=== PATIENT | female | born 1940 | race Hispanic/Latino ===

== ENCOUNTER 2017-08-19 14:03 | Observation (INO) | payer OTHER ==
[2017-08-19] MEDS ORDERED: METHYLPREDNISOLONE 125 MG INJ ONE (15:01)
[2017-08-19] MEDS ORDERED: ALBUTEROL 2.5 MG/3 ML NEB SOL ONE ×2 (15:01→17:18)
[2017-08-19] MEDS ORDERED: IPRATROPIUM BROM 0.5MG/2.5ML ONE ×2 (15:01→17:18)
[2017-08-19 15:07] LABS: Absolute Lymphocytes (CBC) 1.1 K/uL (0.7-4.9); Absolute Monocytes 0.6 K/uL (0.1-1.3); Absolute Neutrophil 3.4 K/uL (1.8-8.0); Basophils % 0.7 % (0-1.3); Eosinophils % 8.2 % (0-4.4); MCH 32.5 pg (27.0-35.0); MCV 97.4 fL (80-100); MPV 12.4 fL (7.6-11.3); RBC Red Blood Cell Count 3.59 M/uL (3.86-4.86)
[2017-08-19 15:12] LABS: Protime INR 1.07
[2017-08-19 15:18] LABS: Potassium 3.6 mEq/L (3.6-5.0)
[2017-08-19 15:24] LABS: Albumin 2.9 g/dL (3.2-5.5); Bilirubin Direct 0.4 mg/dL (0-0.2); Bilirubin Total 1.1 mg/dL (0.3-1.2); Protein, Total 7.5 g/dL (6.0-8.3)
[2017-08-19 15:45] LABS: Blood Morphology Comment NOT SEEN (NOT SEEN); Platelet Estimate DECR; Urine White Blood Cell Casts OK
--- NOTE | 2017-08-19 16:26 | RAD REPORT ---
EXAM DESCRIPTION: RAD - Chest Single View - 08/19/2017 3:43 pm CLINICAL HISTORY: Dyspnea, shortness of breath COMPARISON: November 2011 TECHNIQUE: AP portable chest image was obtained . FINDINGS: Lung volumes are low. No peripheral mass or consolidation. Heart, vasculature and lung mar kings are within normal limits given the degree of inspiration. Trachea is midline. Heart and vascula ture are normal. No measurable pleural effusion and no pneumothorax. No gross bony abnormality seen. No acute aortic findings suspected. IMPRESSION: Shallow inspiration examination accentuates heart, vasculature and lung markings. No peripheral consolidation or mass.
--- NOTE | 2017-08-19 17:13 | ER ---
Nurse's Notes [facility] Name: Ofelia Huizar Age: 76 yrs Sex: Female : 1940 Arrival Date: 08/19/2017 Time: 14:06 Bed 2 Private MD: Jose Martin Beckman Diagnosis: Edema;Chronic obstructive pulmonary disease with (acute) exacerbation Presentation: 08/19 14:12 Presenting complaint: Patient states: I have been having trouble breathing that has la1 been getting worse over the course of the last week, I am also having new swelling in my feet. Transition of care: patient was not received from another setting of care. Onset of symptoms was August 19, 2017. Initial Sepsis Screen: Does the patient meet any 2 criteria? No. Patient's initial sepsis screen is negative. Does the patient have a suspected source of infection? No. Patient's initial sepsis screen is negative. Care prior to arrival: None. 14:12 Method Of Arrival: Wheelchair la1 14:12 Acuity: BIB 2 la1 Triage Assessment: 14:14 General: Appears uncomfortable, Behavior is calm, cooperative. Pain: Denies pain. la1 Respiratory: Reports shortness of breath Onset: The symptoms/episode began/occurred one week, the patient has moderate shortness of breath. Respiratory: Trachea midline Respiratory effort is even, labored, Respiratory pattern is tachypnea. 14:14 Respiratory: Breath sounds with wheezes bilaterally. la1 Historical: - Allergies: 14:15 No Known Allergies; la1 - PMHx: 14:15 Hypertension; High Cholesterol; Bronchitis; la1 - Immunization history:: Adult Immunizations up to date. - Social history:: Smoking status: Patient/guardian denies using tobacco. Screenin:50 Abuse screen: Denies threats or abuse. Denies injuries from another. Nutritional sg screening: No deficits noted. Tuberculosis screening: No symptoms or risk factors identified. Never had TB. Fall Risk None identified. Assessment: 15:00 General: Appears in no apparent distress. comfortable, well groomed, well developed, sg well nourished, Behavior is calm, cooperative, appropriate for age. Pain: Denies pain. Neuro: Level of Consciousness is awake, alert, obeys commands, Oriented to person, place, time, situation, Glass Calibrator are equal bilaterally Moves all extremities. Speech is normal, Facial symmetry appears normal. Cardiovascular: Heart tones S1 S2 present Capillary refill is brisk in bilateral fingers Patient's skin is warm and dry. Edema is 1+ to left ankle, left foot, left toes, right ankle, right foot and right toes Chest pain is denied. Respiratory: Airway is patent Respiratory effort is even, unlabored, Respiratory pattern is regular, symmetrical, Breath sounds are coarse Breath sounds with wheezes. GI: No signs and/or symptoms were reported involving the gastrointestinal system. : No signs and/or symptoms were reported regarding the genitourinary system. EENT: No signs and/or symptoms were reported regarding the EENT system. Derm: Skin is pink, warm \T\ dry. Musculoskeletal: No signs and/or symptoms reported regarding the musculoskeletal system. 16:00 Reassessment: Patient appears in no apparent distress at this time. Patient and/or sg family updated on plan of care and expected duration. Pain level reassessed. Patient is alert, oriented x 3, equal unlabored respirations, skin warm/dry/pink. Patient states feeling better. Respiratory: Airway is patent Respiratory effort is even, unlabored, Respiratory pattern is regular, symmetrical, Breath sounds are coarse Breath sounds with wheezes. Derm: Skin is pink, warm \T\ dry. 17:40 Reassessment: Patient appears in no apparent distress at this time. manufacturing technologist at sg bedside, at this time. 18:00 Reassessment: Patient appears in no apparent distress at this time. Patient and/or sg family updated on plan of care and expected duration. Pain level reassessed. Patient is alert, oriented x 3, equal unlabored respirations, skin warm/dry/pink. pt family remains at bedside at this time, awaiting a bed assignment, pt stated understanding, will continue to monitor. Vital Signs: 14:15 BP 150 / 54; Pulse 84; Resp 19; Temp 98.7(TE); Pulse Ox 97% on R/A; Weight 90.72 kg; la1 Height 5 ft. 0 in. (152.40 cm); 15:30 BP 129 / 57; Pulse 82; Resp 20; sv 14:15 Body Mass Index 39.06 (90.72 kg, 152.40 cm) la1 ED Course: 14:06 Patient arrived in ED. mr 14:07 Jose Martin Beckman MD is Private Physician. mr 14:14 Triage completed. la1 14:14 Arm band placed on left wrist. la1 14:35 Steve Corral PA is PHCP. jr8 14:35 Nash Whiting MD is Attending Physician. jr8 14:55 Initial lab(s) drawn, by me, sent to lab. Inserted saline lock: 20 gauge in right sg wrist, using aseptic technique. Blood collected. 14:58 Mikel Kelly, RN is Primary Nurse. sg 15:20 Patient has correct armband on for positive identification. Bed in low position. Call sg light in reach. Side rails up X2. awake overnight monitor on. Pulse ox on. NIBP on. Warm blanket given. Head of bed elevated. 15:43 XRAY Chest (1 view) In Process Unspecified. EDMS 17:11 Bear Ontiveros MD is Hospitalizing Provider. jr8 17:44 Ultrasound completed. Patient tolerated well. sg3 18:14 No provider procedures requiring assistance completed. Patient admitted, IV remains in sg place. intact, No redness/swelling at site. Administered Medications: 15:08 Drug: Albuterol - atroVENT (3:1) (2.5 mg - 0.5 mg) 3 ml Route: Nebulizer; sv 16:00 Follow up: Response: No adverse reaction sg 15:09 Drug: SOLU-Medrol 125 mg Route: IVP; Site: right hand; sv 16:00 Follow up: Response: No adverse reaction sg 17:30 Drug: Albuterol - atroVENT (3:1) (2.5 mg - 0.5 mg) 3 ml Route: Nebulizer; sg 18:00 Drug: Lasix 40 mg Route: IVP; Site: right wrist; sg 18:02 Drug: LevaQUIN 500 mg Route: PO; sg Outcome: 17:12 Decision to Hospitalize by Provider. jr8 18:15 Admitted to Med/surg accompanied by tech, family with patient, via stretcher, room 210, sg with chart, Report called to Abdi AVALOS 18:15 Condition: stable 18:15 Instructed on the need for admit, medication usage, safety practices, Demonstrated understanding of instructions, follow-up care. 18:26 Patient left the ED. sg Signatures: Dispatcher [facility] Sheba Mckeon RN RN sv Mikel Kelly RN RN sg Gloria Marrufo mr Steve Corral, MANDY GALVAN jr8 Héctor Marquez RN RN la1 Lindsey Barkley 3 Corrections: (The following items were deleted from the chart) 18:05 15:45 Lasix 40 mg IVP in right wrist wanda sg
--- NOTE | 2017-08-19 17:13 | EDPHYS ---
Physician Documentation [facility] Name: Ofelia Huizar Age: 76 yrs Sex: Female : 1940 Arrival Date: 08/19/2017 Time: 14:06 Bed 2 Private MD: Jose Martin Beckman ED Physician Nash Whiting HPI: 08/19 16:55 This 76 yrs old Female presents to ER via Wheelchair with complaints of jr8 Breathing Difficulty. 16:55 The patient has shortness of breath at rest. Onset: The symptoms/episode began/occurred jr8 acutely, today. Duration: The symptoms are continuous. The patient's shortness of breath is aggravated by exertion. Associated signs and symptoms: Pertinent positives: lower extremity edema. Severity of symptoms: At their worst the symptoms were moderate in the emergency department the symptoms are unchanged. It is unknown whether or not the patient has had similar symptoms in the past. The patient has not recently seen a physician. Patient with history of COPD but has never had edema in lower extremities . Historical: - Allergies: 14:15 No Known Allergies; la1 - PMHx: 14:15 Hypertension; High Cholesterol; Bronchitis; la1 - Immunization history:: Adult Immunizations up to date. - Social history:: Smoking status: Patient/guardian denies using tobacco. ROS: 16:55 Eyes: Negative for injury, pain, redness, and discharge, ENT: Negative for injury, jr8 pain, and discharge, Neck: Negative for injury, pain, and swelling, Abdomen/GI: Negative for abdominal pain, nausea, vomiting, diarrhea, and constipation, Back: Negative for injury and pain, MS/Extremity: Negative for injury and deformity, Skin: Negative for injury, rash, and discoloration, Neuro: Negative for headache, weakness, numbness, tingling, and seizure. 16:55 Cardiovascular: Positive for edema, Negative for chest pain, orthopnea, palpitations, paroxysmal nocturnal dyspnea. 16:55 Respiratory: Positive for shortness of breath, wheezing. Exam: 16:55 Eyes: Pupils equal round and reactive to light, extra-ocular motions intact. Lids and jr8 lashes normal. Conjunctiva and sclera are non-icteric and not injected. Cornea within normal limits. Periorbital areas with no swelling, redness, or edema. ENT: Nares patent. No nasal discharge, no septal abnormalities noted. Tympanic membranes are normal and external auditory canals are clear. Oropharynx with no redness, swelling, or masses, exudates, or evidence of obstruction, uvula midline. Mucous membranes moist. Neck: Trachea midline, no thyromegaly or masses palpated, and no cervical lymphadenopathy. Supple, full range of motion without nuchal rigidity, or vertebral point tenderness. No Meningismus. Abdomen/GI: Soft, non-tender, with normal bowel sounds. No distension or tympany. No guarding or rebound. No evidence of tenderness throughout. Back: No spinal tenderness. No costovertebral tenderness. Full range of motion. Skin: Warm, dry with normal turgor. Normal color with no rashes, no lesions, and no evidence of cellulitis. MS/ Extremity: Pulses equal, no cyanosis. Neurovascular intact. Full, normal range of motion. Neuro: Awake and alert, GCS 15, oriented to person, place, time, and situation. Cranial nerves II-XII grossly intact. Motor strength 5/5 in all extremities. Sensory grossly intact. Cerebellar exam normal. Normal gait. 16:55 Cardiovascular: Rate: tachycardic, Rhythm: regular, Pulses: Pulses are 2+ in right radial artery and left radial artery. Heart sounds: normal, normal S1and S2, no S3 or S4, no murmur, no rub, no gallop, Edema: 2+ edema to level of left midcalf, left ankle, left foot, right midcalf, right ankle and right foot, JVD: is not appreciated. 16:55 Respiratory: mild respiratory distress is noted, Respirations: tachypnea, that is mild, Breath sounds: wheezing: expiratory that is moderate, is heard diffusely. Vital Signs: 14:15 BP 150 / 54; Pulse 84; Resp 19; Temp 98.7(TE); Pulse Ox 97% on R/A; Weight 90.72 kg; la1 Height 5 ft. 0 in. (152.40 cm); 15:30 BP 129 / 57; Pulse 82; Resp 20; sv 14:15 Body Mass Index 39.06 (90.72 kg, 152.40 cm) la1 MDM: 14:35 Patient medically screened. jr8 17:11 Data reviewed: vital signs, nurses notes, lab test result(s), EKG, radiologic studies, jr8 plain films, ultrasound, and as a result, I will admit patient. Data interpreted: Pulse oximetry: on room air is 97 %. Interpretation: normal. Counseling: I had a detailed discussion with the patient and/or guardian regarding: the historical points, exam findings, and any diagnostic results supporting the discharge/admit diagnosis, lab results, radiology results, the need for further work-up and treatment in the hospital. Physician consultation: Bear Ontiveros MD was called at 17:11, was contacted at 17:11, regarding admission, to the telemetry unit. consult, patient's condition, and will see patient. 08/19 14:35 Order name: Basic Metabolic Panel; Complete Time: 15:33 08/19 14:35 Order name: BNP; Complete Time: 15:54 08/19 14:35 Order name: CBC with Diff 08/19 14:35 Order name: LFT's; Complete Time: 15:33 08/19 14:35 Order name: Magnesium; Complete Time: 15:33 08/19 14:35 Order name: PT-INR; Complete Time: 15:16 08/19 14:35 Order name: Troponin (emerg Dept Use Only); Complete Time: 15:54 08/19 14:35 Order name: XRAY Chest (1 view); Complete Time: 16:28 08/19 15:16 Order name: CBC Smear Scan EDMS 08/19 16:54 Order name: US Abdomen Limited 08/19 14:35 Order name: EKG; Complete Time: 14:36 08/19 14:35 Order name: Cardiac monitoring; Complete Time: 14:59 08/19 14:35 Order name: EKG - Nurse/Tech; Complete Time: 15:00 08/19 14:35 Order name: IV Saline Lock; Complete Time: 15:00 08/19 14:35 Order name: Labs collected and sent; Complete Time: 15:00 08/19 14:35 Order name: O2 Per Protocol; Complete Time: 15:00 08/19 14:35 Order name: O2 Sat Monitoring; Complete Time: 15:00 Administered Medications: 15:08 Drug: Albuterol - atroVENT (3:1) (2.5 mg - 0.5 mg) 3 ml Route: Nebulizer; sv 16:00 Follow up: Response: No adverse reaction sg 15:09 Drug: SOLU-Medrol 125 mg Route: IVP; Site: right hand; sv 16:00 Follow up: Response: No adverse reaction sg 17:30 Drug: Albuterol - atroVENT (3:1) (2.5 mg - 0.5 mg) 3 ml Route: Nebulizer; sg 18:00 Drug: Lasix 40 mg Route: IVP; Site: right wrist; sg 18:02 Drug: LevaQUIN 500 mg Route: PO; sg Disposition: 08/19/17 17:12 Hospitalization ordered by Bear Ontiveros for Observation. Preliminary diagnosis are Edema, Chronic obstructive pulmonary disease with (acute) exacerbation. - Bed requested for Telemetry/MedSurg (observation). - Status is Observation. sg - Condition is Stable. - Problem is new. - Symptoms have improved. UTI on Admission? No Addendum: 08/21/2017 09:05 Co-signature as Attending Physician, Nash Whiting MD I agree with the assessment and c dxion plan of care. Signatures: Dispatcher [employer] EDID Sheba Coles RN BAILEY Mikel Kelly RN RN Nash Whiting MD MD cha Roszak, Josh, PA PA jr8 Héctor Marquez RN RN la1 Corrections: (The following items were deleted from the chart) 08/19 17:08 16:54 Abdomen Limited+US.RAD.BRZ ordered. EDID EDID 18:02 17:12 Hospitalization Ordered by Bear Ontiveros MD for Observation. Preliminary sg diagnosis is Edema; Chronic obstructive pulmonary disease with (acute) exacerbation. Bed requested for Telemetry/MedSurg (observation). Status is Observation. Condition is Stable. Problem is new. Symptoms have improved. UTI on Admission? No. jr8 18:26 18:02 08/19/2017 17:12 Hospitalization Ordered by Bear Ontiveros MD for Observation. sg Preliminary diagnosis is Edema; Chronic obstructive pulmonary disease with (acute) exacerbation. Bed requested for Telemetry/MedSurg (observation). Status is Observation. Condition is Stable. Problem is new. Symptoms have improved. UTI on Admission? No. sg
[2017-08-19] MEDS ORDERED: levoFLOXacin 500 MG TAB ONE (17:19)
[2017-08-19] MEDS ORDERED: FUROSEMIDE 40 MG/4 ML VIAL ONE (17:19)
[2017-08-19] MEDS ORDERED: ACETAMINOPHEN 650MG/RECT SUPP PR PRN (17:50)
[2017-08-19] MEDS ORDERED: ALBUTEROL 2.5 MG/3 ML NEB SOL NEB PRN (17:50)
[2017-08-19] MEDS ORDERED: ONDANSETRON 4 MG/2 ML VIAL IV PRN ×2 (17:50→19:16)
[2017-08-19] MEDS ORDERED: ACETAMINOPHEN 500 MG TAB PO PRN (19:16)
--- NOTE | 2017-08-19 19:54 | RAD REPORT ---
EXAM DESCRIPTION: US - Abdomen Exam Limited - 08/19/2017 6:04 pm CLINICAL HISTORY: Abnormal liver function COMPARISON: Ultrasound September 2014 FINDINGS: Gallbladder is absent. Biliary tree within normal limits for a post cholecystectomy patien t. No mass or abnormal fluid collection in the gallbladder fossa. Liver shows a coarsened, heterogeneous echogenicity. Liver is 14 cm in maximum dimension. No ascites or capsular nodularity. Portal flow direction and velocity values normal range. In the central right lobe subcapital region a 3 centimeter area of slightly diminished echogenicity seen. This is potentia lly an area of spared parenchyma with a fatty infiltration pattern. A focal liver lesion is possible as well. No similar finding was identified in 2015 though the prior study was a dedicated vascular ex amination. IMPRESSION: Coarsened, heterogeneous echogenicity that could indicate fatty infiltration, diffuse he patic parenchymal disease or a combination. A 3 centimeter area of diminished echogenicity in the right lobe warrants further evaluation with con trast MRI imaging or contrast CT imaging.
[2017-08-19] MEDS ORDERED: Levofloxacin 750mg IV 750 MG/150 ML BAG IV SCH ×2 (20:00→21:00)
[2017-08-19] MEDS ORDERED: IPRATROPIUM BROM 0.5MG/2.5ML NEB SCH (20:00)
[2017-08-19] MEDS: ALBUTEROL 2.5 MG/3 ML NEB SOL NEB SCH (20:06)
[2017-08-19] MEDS: IPRATROPIUM BROM 0.5MG/2.5ML NEB SCH (20:06)
[2017-08-19] MEDS: PREGABALIN 50 MG CAP PO SCH (21:04)
[2017-08-19] MEDS: METHYLPREDNISOLONE 125 MG INJ IV SCH (23:21)
[2017-08-20] MEDS: IPRATROPIUM BROM 0.5MG/2.5ML NEB SCH ×7 (01:20→23:32)
[2017-08-20] MEDS: ALBUTEROL 2.5 MG/3 ML NEB SOL NEB SCH ×4 (01:20→20:49)
[2017-08-20 05:08] LABS: Absolute Lymphocytes (CBC) 0.2 K/uL (0.7-4.9); Absolute Monocytes 0.1 K/uL (0.1-1.3); Absolute Neutrophil 3.3 K/uL (1.8-8.0); Basophils % 0.1 % (0-1.3); Eosinophils % 0.1 % (0-4.4); Hematocrit 32.4 % (36.0-45.0); Lymphocytes % 6.5 % (15.3-44.8); MCH 32.9 pg (27.0-35.0); MCV 97.9 fL (80-100); MPV 12.6 fL (7.6-11.3); Monocytes % 2.3 % (3.3-12.3); RBC Red Blood Cell Count 3.31 M/uL (3.86-4.86)
--- NOTE | 2017-08-20 05:12 | HP ---
Date of Admission: 08/19/2017 Reason For Admission: Progressive shortness of breath. History Of Present Illness: This is a 76-year-old female with past medical history significant for h yperlipidemia, hypertension, bronchitis. Admitted with progressive shortness of breath that started a few days ago, got much worse where the patient turn blue at home. There was no fever, no chills. She had a cough with white sputum. No chest pain. She also had progressive lower extremity swelling . In the ER, she was evaluated. The chest x-ray was unremarkable. BMP was around 120. She was giv en Lasix, steroid. She feels somewhat better. Her CBC showed normal except for mild anemia. CMP wa s normal except for mild elevation in LFTs. Ultrasound of the abdomen done. Results not available. The patient was admitted for presumed COPD exacerbation. Currently, she is lying in bed. She looks better. She is breathing better. Her family at the bedside. Review of Systems: Otherwise as below. Past Medical History: Significant for hyperlipidemia, hypertension, bronchitis, and neuropathy. Past Surgical History: Significant for cholecystectomy and knee surgery. Allergies: NONE. Social History: The patient is . She lives with her . She does not drink, smoke, or use any drugs. She quit smoking 30 years ago. Family History: Father of cancer. Mother of AAA. Medication List: She is on Lyrica and some medication for hypertension and high cholesterol. Daught er will provide list later. Review of Systems: Denies any fever, chills, night sweats, dizziness, lightheaded, headache, or blurred vision. She hav e cough, sputum, and shortness of breath. There was no chest pain, palpitations, or PND. She does h ave dyspnea on exertion. No orthopnea. She does have progressive lower extremity edema. No nausea, vomiting, abdominal pain, change in bowel movement, diarrhea, constipation, dysuria, frequency, urge ncy, or hematuria. There is no history of depression, anxiety, seizure, or stroke. Physical Examination: Vital Signs: Currently vital signs, blood pressure is 150/54, pulse 84, respiratory rate 19, tempera ture 98.7, she is saturating 97% on room air. General: She is alert and oriented x3. Does not look in any distress. HEENT: Atraumatic, normocephalic. PERRLA. Oral mucosa is moist. Neck: Supple. No JVD. No carotid bruits. Chest: Clear to auscultation with some expiratory wheezing. There are no rales. Heart: Regular rate and rhythm. S1, S2 normal. No gallop. Abdomen: Soft, nontender. No masses. No hepatosplenomegaly. Positive bowel sounds. Obese. Extremities: No clubbing or cyanosis, +1 edema. Neurologic: Grossly intact. Cranial nerves exam 2 through 12 intact. Normal sensation. Normal ref lexes. Normal muscle strength. Laboratory Data: Labs today showed CBC within normal except for mild anemia, hemoglobin 11.7, platel ets of 62. CMP within normal except for creatinine 1.01, glucose 110, AST of 46, ALT of 29, alkaline phosphatase of 157, albumin of 2.9. Ultrasound of the abdomen is not available. Chest x-ray was ne jannie. Assessment And Plan: A 76-year-old female, history of multiple medical problems, presented with prog ressive shortness of breath. 1.Chronic obstructive pulmonary disease exacerbation. We will admit the patient to the floor. Keep her on Solu-Medrol every 6 hours. Continue IV antibiotic with Levaquin. Sputum culture and blood c ulture will be ordered. The patient will continue on nebulizer every 6 hours as well. 2.History of hypertension. Medication list is not available. We will place the patient on hydralaz ine as needed. 3.History of hyperlipidemia. We will start medication when daughter provide list. 4.Elevated LFTs. Ultrasound done. Results pending. I will check hepatitis profile. 5.Thrombocytopenia, etiology unknown. We will need to follow up in a.m. if the patient had hepatiti s that could be the reason. We will need to order peripheral smear. 6.Overweight. 7.Lower extremity edema. BMP was not that high. I will check echocardiogram though. I will contin ue Lasix 40 mg once a day. 8.Deep vein thrombosis prophylaxis, Lovenox. CJ/EDWIGE Voice ID: [id number]
[2017-08-20] MEDS: METHYLPREDNISOLONE 125 MG INJ IV SCH ×4 (05:14→23:47)
[2017-08-20 05:39] LABS: Potassium 3.3 mEq/L (3.6-5.0)
[2017-08-20] MEDS ORDERED: NA CHLORIDE 0.9% 250 ML ONE (06:41)
[2017-08-20] MEDS: KCL 20 MEQ/100 mL IVPB 20 MEQ/100 ML BAG IV SCH ×2 (06:53→08:36)
[2017-08-20 07:52] LABS: Blood Morphology Comment NOT SEEN (NOT SEEN); Platelet Estimate DECR; Urine White Blood Cell Casts OK
[2017-08-20] MEDS: FUROSEMIDE 40 MG/4 ML VIAL IV SCH (08:36)
[2017-08-20] MEDS: PREGABALIN 50 MG CAP PO SCH (08:37)
[2017-08-20] MEDS ORDERED: ENOXAPARIN 30 MG/0.3 ML SQ SCH (09:00)
--- NOTE | 2017-08-20 13:22 | RAD REPORT ---
EXAM DESCRIPTION: CT - Abdomen W/Wo Contrast - 08/20/2017 11:59 am CLINICAL HISTORY: Liver lesion/mass. COMPARISON: Sonogram 08/19/2017 TECHNIQUE: Axial non-contrast CT imaging was performed. Following this, triphasic contrast enhanced imaging through the abdomen was performed with coronal and sagittal reformatted images. All CT scans are performed using dose optimization technique as appropriate and may include automated exposure control or mA/KV adjustment according to patient size. FINDINGS: The lower lung graham are clear. Diffuse fatty liver is noted. A mildly nodular contour to the liver seen. Small 10 mm low-density les ion in the left lobe which is nonenhancing is noted, likely not clinically significant. In the inferior aspect of the right lobe of the liver, a vague rounded lesion is identified measures approximately 3 cm. This results in a mild bulbous contour to liver in this region. The lesion has la rgely the same attenuation as the adjacent liver parenchyma and is only slightly hypodense relative t o the liver fall on the delayed sequence. The lesion is not demonstrate avid arterial phase enhanceme nt early. Mild splenomegaly is seen. Cholecystectomy clips. No biliary dilatation. The non-contrast portion of the study does not demonstrate any urinary tract stones. No hydronephrosi s is seen in either kidney. Mild pancreatic atrophy seen. Both adrenal glands are normal. Post-contrast and delayed excretory seq uences through the kidney within normal limits. No bowel obstruction, free fluid or abscess. No bulky intra-abdominal adenopathy seen. Moderate lumbar degenerative changes. IMPRESSION: Diffuse fatty liver with mild nodular contour suspicious for mild cirrhosis. Vague 3 cm lesion is suspected inferior right lobe of the liver. The lesion does not demonstrate a ch aracteristic enhancement pattern such that a definitive diagnosis can be made by imaging. It is recom mended the patient undergo MR or CT liver protocol in 6 months for continued surveillance.
--- NOTE | 2017-08-20 14:01 | PN ---
Subjective: Currently, the patient is sitting in a chair. She is opening her Mother's Day gift. Kim orona has no chest pain. Shortness of breath is improving. Her lower extremity swelling is improving. Also no nausea. No vomiting. Overnight she continued to have cough. Objective: Vital Signs: Blood pressure is 116/53, respiratory rate 18, pulse 103, temperature 98.3. General: She is fully alert, oriented x3. Does not look in any distress. HEENT: Atraumatic, normocephalic. PERRLA. Oral mucosa is moist. Neck: Supple. No JVD. Chest: Clear to auscultation with expiratory wheezing. Heart: Regular rate and rhythm. S1, S2 normal. Slightly tachy. No gallop. Abdomen: Soft, nontender. No masses. No hepatosplenomegaly. Positive bowel sounds. She is obese. Extremities: No clubbing. No cyanosis. +1 edema more on the left than the right. Laboratory Data: CBC with white blood cells 3.6, hemoglobin 10.9, platelet down to 49. Chemistry wi thin normal except for potassium of 3.3, BUN of 21, creatinine of 1.18. Hepatitis profile is still p ending. Assessment And Plan: 1.Chronic obstructive pulmonary disease exacerbation versus acute bronchitis. The patient is breath ing better. She continued to have some wheezing. I will continue her on steroid, antibiotic, and ne bulizer for now. 2.Hyperlipidemia. I will continue the patient on Crestor 20 mg once a day. 3.Hypertension. We will continue patient on valsartan/hydrochlorothiazide 1 tablet a day as before. 4.Thrombocytopenia, severe. Peripheral smear pending. Hepatitis profile is pending. We will follo w on that in a.m. 5.Elevated liver enzymes. Ultrasound of the liver showed heterogeneous echogenicity that could darius eric fatty liver, diffuse hepatic parenchymal disease versus cirrhosis. There was 3 cm area in the r ight lobe that needs further evaluation. We will proceed with CT scan with and without contrast. 6.Renal insufficiency, mild, could be secondary to diuresis. We will observe closely. 7.Hypokalemia. We will replace potassium. She is on protocol. 8.Hyperglycemia. I will check hemoglobin A1c. MT/MODL Voice ID: [id number] Report ID: [id number]
--- NOTE | 2017-08-20 15:24 | EKG ---
Test Date: 2017-08-19 Test Time: 14:33:37 Tree Thinner: JOEY MEASUREMENT RESULTS: Intervals: Rate: 82 MS: 142 QRSD: 82 QT: 400 QTc: 467 [place]worth: P: 70 MS: 142 QRS: 54 T: 40 INTERPRETIVE STATEMENTS: Normal sinus rhythm Normal ECG Compared to ECG 10/25/2013 10:57:38 Myocardial infarct finding no longer present Electronically Signed On 08-20-17 15:23:29 CDT by Ravi Kat
[2017-08-20 20:56] VITALS: BMI 41.5
[2017-08-20] MEDS ORDERED: ROSUVASTATIN 10 MG TAB PO SCH (21:00)
[2017-08-20] MEDS ORDERED: POTASSIUM CL SA 10 MEQ TAB PO ONE (21:00)
[2017-08-21] MEDS: IPRATROPIUM BROM 0.5MG/2.5ML NEB SCH ×2 (03:57→09:05)
[2017-08-21] MEDS: ALBUTEROL 2.5 MG/3 ML NEB SOL NEB SCH ×3 (03:57→14:20)
[2017-08-21 05:29] LABS: Albumin 2.8 g/dL (3.2-5.5); Bilirubin Total 0.7 mg/dL (0.3-1.2); Potassium 4.3 mEq/L (3.6-5.0)
[2017-08-21] MEDS: METHYLPREDNISOLONE 125 MG INJ IV SCH (05:51)
[2017-08-21] MEDS ORDERED: PREGABALIN 50 MG CAP PO SCH (09:00)
[2017-08-21] MEDS ORDERED: hydroCHLOROthiazide 12.5 MG CAP PO SCH (09:00)
[2017-08-21] MEDS ORDERED: VALSARTAN 160 MG TAB PO SCH (09:00)
[2017-08-21] MEDS ORDERED: HOME MED 1 EA UNK (Valsartan/Hydrochlorothiazide [Valsartan-Hctz 320-12.5 Mg Tab] 1 TAB) PO SCH (09:00)
[2017-08-21] MEDS: FUROSEMIDE 40 MG/4 ML VIAL IV SCH (09:44)
[2017-08-21 10:20] VITALS: O2SAT 93
--- NOTE | 2017-08-21 11:01 | P.DS ---
Admission Date: 08/19/17 Discharge Date: 08/21/17 Primary Care Provider: Dr. Piña Disposition: [facility] HOME/HOME HEALTH CARE Discharge Condition: GOOD Reason for Admission: Shortness of breath Procedures: Abdominal ultrasound: FINDINGS: Gallbladder is absent. Biliary tree within normal limits for a post cholecystectomy patient. No mass or abnormal fluid collection in the gallbladder fossa. Liver shows a coarsened, heterogeneous echogenicity. Liver is 14 cm in maximum dimension. No ascites or capsular nodularity. Portal flow direction and velocity values normal range. In the central right lobe subcapital region a 3 centimeter area of slightly diminished echogenicity seen. This is potentially an area of spared parenchyma with a fatty infiltration pattern. A focal liver lesion is possible as well. No similar finding was identified in 2014 though the prior study was a dedicated vascular examination. IMPRESSION: Coarsened, heterogeneous echogenicity that could indicate fatty infiltration, diffuse hepatic parenchymal disease or a combination. A 3 centimeter area of diminished echogenicity in the right lobe warrants further evaluation with contrast MRI imaging or contrast CT imaging. CT scan: COMPARISON: Sonogram 08/19/2017 TECHNIQUE: Axial non-contrast CT imaging was performed. Following this, triphasic contrast enhanced imaging through the abdomen was performed with coronal and sagittal reformatted images. All CT scans are performed using dose optimization technique as appropriate and may include automated exposure control or mA/KV adjustment according to patient size. FINDINGS: The lower lung graham are clear. Diffuse fatty liver is noted. A mildly nodular contour to the liver seen. Small 10 mm low-density lesion in the left lobe which is nonenhancing is noted, likely not clinically significant. In the inferior aspect of the right lobe of the liver, a vague rounded lesion is identified measures approximately 3 cm. This results in a mild bulbous contour to liver in this region. The lesion has largely the same attenuation as the adjacent liver parenchyma and is only slightly hypodense relative to the liver fall on the delayed sequence. The lesion is not demonstrate avid arterial phase enhancement early. Mild splenomegaly is seen. Cholecystectomy clips. No biliary dilatation. The non-contrast portion of the study does not demonstrate any urinary tract stones. No hydronephrosis is seen in either kidney. Mild pancreatic atrophy seen. Both adrenal glands are normal. Post-contrast and delayed excretory sequences through the kidney within normal limits. No bowel obstruction, free fluid or abscess. No bulky intra-abdominal adenopathy seen. Moderate lumbar degenerative changes. IMPRESSION: Diffuse fatty liver with mild nodular contour suspicious for mild cirrhosis. Vague 3 cm lesion is suspected inferior right lobe of the liver. The lesion does not demonstrate a characteristic enhancement pattern such that a definitive diagnosis can be made by imaging. It is recommended the patient undergo MR or CT liver protocol in 6 months for continued surveillance. 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 (3) Anemia Current Visit: Yes Status: Chronic Qualifiers: Anemia type: other cause Other causes of anemia: chronic disease, other Qualified Code(s): D63.8 - Anemia in other chronic diseases classified elsewhere (4) HTN (hypertension) Current Visit: Yes Status: Chronic Qualifiers: Hypertension type: unspecified Qualified Code(s): I10 - Essential (primary ) hypertension (5) Hyperlipidemia Current Visit: Yes Status: Chronic Qualifiers: Hyperlipidemia type: unspecified Qualified Code(s): E78.5 - Hyperlipidemia , unspecified (6) Liver lesion, right lobe Current Visit: Yes Status: Acute (7) Chronic pain Current Visit: Yes Status: Chronic Qualifiers: Chronic pain type: other chronic pain Qualified Code(s): G89.29 - Other chronic pain (8) Acute renal insufficiency Current Visit: Yes Status: Acute (9) Obesity Current Visit: Yes Status: Chronic Qualifiers: Obesity type: due to excess calories Obesity classification: adult class 3 (BMI >= 40) Serious obesity comorbidity presence: with serious comorbidity Body mass index: BMI 40.0-44.9 Qualified Code(s): E66.01 - Morbid (severe) obesity due to excess calories; Z68.41 - Body mass index (BMI) 40.0-44.9, adult (10) Thrombocytopenia Onset Date: 08/21/17 Current Visit: Yes Status: Chronic Brief History of Present Illness: 76-year-old female presented urgency room with shortness of breath. Patient found to be in COPD exacerbation. The patient was admitted for further evaluation. Patient also had slight elevation in liver function, anemia with thrombocytopenia and renal insufficiency. Hospital Course: Patient presented with shortness of breath likely COPD exacerbation. Patient given treatment in the hospital. This included IV steroids and antibiotic therapy. Patient did well during the course of her stay. No pneumonia was identified. Patient was evaluated for the need for home oxygen. Patient did qualify for this. Family also requested home health and physical therapy at discharge. Patient had not been placed on maintenance therapy for COPD in the past. At discharge patient will continue with prednisone 20 mg 1 pill twice daily for 5 days then 1 pill once daily for 5 days. New medication includes Symbicort 160 mcg 2 puffs twice daily. Patient may continue with albuterol nebs 1 unit dose 3 times a day as needed for shortness of breath. Recommendation is for the patient to follow up with pulmonology as an outpatient to further monitor and treat. Recommendation is to recheck chest x- ray in 2-4 weeks to monitor resolution. Prior to discharge home oxygen will be set up to maintain sats above 90%. Home health will also be arranged for education on COPD and monitoring of oxygen. Patient has hypertension. Medications had to be adjusted due to acute renal insufficiency. This remained stable during her stay. At discharge valsartan/ hydrochlorothiazide has been discontinued. New medication carvedilol 6.25 mg 1 pill twice daily has been added. Patient to hold medication if blood pressure systolic is less than 120. Recommendation is to maintain blood pressures less 150/80. Further adjustment can be done by her PCP. Patient has hyperlipidemia. Patient may continue with Crestor 20 mg 1 pill once daily. Patient had abnormal CT scan showing possible liver cirrhosis likely from fatty liver. A 3 cm lesion noted to the right lobe was noted. Recommendation is to recheck with CT or MRI in the future to monitor resolution. Recommendation is for the patient to follow up with GI as an outpatient to further monitor and evaluate. Hepatitis panel is pending at discharge. Education on fatty liver will be provided. Patient had acute renal insufficiency likely from medication and diuresis. Recommendation is to recheck BMP in 1 week to monitor resolution. Medications have been adjusted. Patient will no longer take valsartan/hydrochlorothiazide. She will continue with Lasix as needed. Patient did receive IV contrast to evaluate liver lesion. This can be followed up as an outpatient. Recommendation on no further use of nonsteroidal anti-inflammatories. Patient has chronic pain. Patient may continue with Lyrica 100 mg daily. Patient also takes tramadol 50 mg 1 pill 3 times a day as needed for pain. Patient with anemia and thrombocytopenia. This is likely of chronic disease related to fatty liver/cirrhosis. Lab including iron and B12 along with peripheral smear has been obtained. Recommendation is for the patient follow up with her PCP to further address. No further use of nonsteroidal anti- inflammatories is recommended. She is to monitor for any bleeding. Vital Signs/Physical Exam: Temp Pulse Resp BP Pulse Ox 98.0 F 87 16 126/58 L 96 08/21/17 08:00 08/21/17 08:00 08/21/17 08:00 08/21/17 08:00 08/21/17 08:00 General: Alert, In no apparent distress, Oriented x3, Cooperative HEENT: Atraumatic, Normocephalic, PERRLA, Mucous membr. moist/pink Neck: Supple Respiratory: Expiratory wheezes (Mild wheezing bilateral) Cardiovascular: Normal pulses, Regular rate/rhythm Gastrointestinal: Normal bowel sounds, Soft and benign, Non-distended, No tenderness, No masses, No rebound, No guarding Musculoskeletal: No erythema, No tenderness, No warmth Integumentary: No erythema, No warmth, No cyanosis, Tenderness/swelling (Less than 1+ pitting edema to the lower extremity.) Neurological: Normal speech, Normal strength at 5/5 x4 extr, Normal tone, Normal affect Lymphatics: No axilla or inguinal lymphadenopathy Laboratory Data at Discharge: WBC 3.6 K/uL (4.3-10.9) L D 08/20/17 04:27 Hgb 10.9 g/dL (12.0-15.0) L 08/20/17 04:27 Hct 32.4 % (36.0-45.0) L 08/20/17 04:27 Plt Count 49 K/uL (152-406) L* D 08/20/17 04:27 PT 12.6 SECONDS (9.5-12.5) H 08/19/17 14:40 INR 1.07 08/19/17 14:40 Sodium 137 mEq/L (135-145) 08/21/17 04:32 Potassium 4.3 mEq/L (3.6-5.0) 08/21/17 04:32 BUN 30 mg/dL (6-20) H 08/21/17 04:32 Creatinine 1.37 mg/dL (0.44-1.00) H 08/21/17 04:32 Glucose 180 mg/dL (65-120) H 08/21/17 04:32 Magnesium 2.0 mg/dL (1.8-2.5) 08/19/17 14:40 Total Bilirubin 0.7 mg/dL (0.3-1.2) 08/21/17 04:32 AST 47 IU/L (10-42) H 08/21/17 04:32 ALT 30 IU/L (10-60) 08/21/17 04:32 Alkaline Phosphatase 128 IU/L (42-121) H 08/21/17 04:32 B-Natriuretic Peptide 121 pg/ml (<=100) H 08/19/17 14:40 Triglycerides 43 mg/dL (35-160) 08/20/17 04:27 Cholesterol 133 mg/dL (<200) 08/20/17 04:27 HDL Cholesterol 39 mg/dL (29-89) 08/20/17 04:27 Cholesterol/HDL Ratio 3.41 08/20/17 04:27 Home Medications: Pregabalin [Lyrica*] 100 mg PO DAILY 08/19/17 Rosuvastatin Calcium [Crestor] 20 mg PO DAILY 08/19/17 Tramadol HCl [Ultram] 50 mg PO TID PRN 08/19/17 Albuterol Neb [Proventil 0.083% Neb Soln] 1 amp NEB TID PRN #90 amp 08/21/17 Budesonide/Formoterol Fumarate [Symbicort 160-4.5 Mcg Inhaler] 2 puff IH BID #1 hfa.aer.ad 08/21/17 Carvedilol [Coreg*] 6.25 mg PO BID #60 tab 08/21/17 Furosemide [Lasix*] 20 mg PO DAILY PRN #30 tab 08/21/17 Prednisone [Prednisone*] 20 mg PO SEECOM #15 tab 08/21/17 New Medications: Albuterol Neb [Proventil 0.083% Neb Soln] 1 amp NEB TID PRN #90 amp PRN Reason: Shortness Of Breath Budesonide/Formoterol Fumarate [Symbicort 160-4.5 Mcg Inhaler] 2 puff IH BID #1 hfa.aer.ad Carvedilol [Coreg*] 6.25 mg PO BID #60 tab Furosemide [Lasix*] 20 mg PO DAILY PRN #30 tab PRN Reason: Shortness Of Breath Prednisone [Prednisone*] 20 mg PO SEECOM #15 tab Patient Discharge Instructions: 1. Patient will need a follow up with her PCP within 1 week to follow up this hospitalization. 2. Patient presented with shortness of breath likely COPD exacerbation. Patient given treatment in the hospital. At discharge patient will continue with prednisone 20 mg 1 pill twice daily for 5 days then 1 pill once daily for 5 days. New medication includes Symbicort 160 mcg 2 puffs twice daily. Patient may continue with albuterol nebs 1 unit dose 3 times a day as needed for shortness of breath. Recommendation is for the patient to follow up with pulmonology as an outpatient to further monitor and treat. Recommendation is to recheck chest x- ray in 2-4 weeks to monitor resolution. Prior to discharge home oxygen will be set up to maintain sats above 90%. Home health will also be arranged for education on COPD and monitoring of oxygen. 3. Patient has hypertension. Medications had to be adjusted due to acute renal insufficiency. At discharge valsartan/hydrochlorothiazide has been discontinued. New medication carvedilol 6.25 mg 1 pill twice daily has been added. Patient to hold medication if blood pressure systolic is less than 120. Recommendation is to maintain blood pressures less 150/80. Further adjustment can be done by her PCP. 4. Patient has hyperlipidemia. Patient may continue with Crestor 20 mg 1 pill once daily. 5. Patient had abnormal CT scan showing possible liver cirrhosis likely from fatty liver. A 3 cm lesion noted to the right lobe was noted. Recommendation is to recheck with CT or MRI in the future to monitor resolution. Recommendation is for the patient to follow up with GI as an outpatient to further monitor and evaluate. Hepatitis panel is pending at discharge. Education on fatty liver will be provided. 6. Patient had acute renal insufficiency likely from medication and diuresis. Recommendation is to recheck BMP in 1 week to monitor resolution. Medications have been adjusted. Patient will no longer take valsartan/hydrochlorothiazide. She will continue with Lasix as needed. Patient did receive IV contrast to evaluate liver lesion. This can be followed up as an outpatient. Recommendation on no further use of nonsteroidal anti-inflammatories. 7. Patient has neuropathy. Patient may continue with Lyrica 100 mg daily. Patient also takes tramadol 50 mg 1 pill 3 times a day as needed for pain. 8. Patient with anemia and thrombocytopenia. This is likely of chronic disease related to fatty liver/ cirrhosis. Lab including iron and B12 along with peripheral smear has been obtained. Recommendation is for the patient follow up with her PCP to further address. No further use of nonsteroidal anti-inflammatories is recommended. She is to monitor for any bleeding. Diet: AHA Activity: Fall precautions Time spent managing pt's care (in minutes): 55
[2017-08-21 11:31] LABS: Ferritin 169.5 ng/ml (11.0-306.8)
[2017-08-21 12:08] LABS: A1c Component 0.41 mg/dL; Hemoglobin A1c 5.4 % (4-6.0)
--- NOTE | 2017-08-21 12:43 | ECHO ---
HEIGHT: 5 ft 0 in WEIGHT: 213 lb 0 oz DATE OF STUDY: 08/21/[address]: Bear Ontiveros MD 2-DIMENSIONAL: YES M.MODE: YES DOPPLER: YES COLOR FLOW: YES TDS: NO PORTABLE: NO DEFINITY: NO BUBBLE STUDY: NO DIAGNOSIS: CONGESTIVE HEART FAILURE CARDIAC HISTORY: CATHERIZATION: NO SURGERY: NO PROSTHETIC VALVE: NO PACEMAKER: NO MEASUREMENTS (cm) DIASTOLIC (NORMALS) SYSTOLIC (NORMALS) IVSd 1.0 (0.6-1.2) LA Diam 3.9 (1.9-4.0) LVEF 53% LVIDd 3.8 (3.5-5.7) LVIDs 2.7 (2.0-3.5) %FS 27% LVPWd 1.1 (0.6-1.2) Ao Diam (2.0-3.7) 2 DIMENSIONAL ASSESSMENT: RIGHT ATRIUM: NORMAL LEFT ATRIUM: NORMAL RIGHT VENTRICLE: NORMAL LEFT VENTRICLE: NORMAL TRICUSPID VALVE: NORMAL MITRAL VALVE: NORMAL PULMONIC VALVE: NORMAL AORTIC VALVE: NORMAL PERICARDIAL EFFUSION: NONE AORTIC ROOT: NORMAL LEFT VENTRICULAR WALL MOTION: NORMAL. DOPPLER/COLOR FLOW: MILD TRICUSPID REGURGITATION. NORMAL RIGHT VENTRICULAR SYSTOLIC PRESSURE. IMPAIRED LEFT VENTRICULAR RELAXATION. COMMENTS: NORMAL 2D ECHO. MILD TRICUSPID REGURGITATION. IMPAIRED LEFT VENTRICULAR RELAXATION. TECHNOLOGIST: LAW ARMENDARIZ
[2017-08-21] MEDS ORDERED: IPRATROPIUM BROM 0.5MG/2.5ML NEB SCH (14:00)
[2017-08-21 16:57] VITALS: BP 137/47; TEMP 97.6
[2017-08-21] MEDS ORDERED: Levofloxacin 750mg IV 750 MG/150 ML BAG IV SCH (18:00)
[2017-08-21] MEDS ORDERED: CARVEDILOL 6.25 MG TAB PO SCH (21:00)
[2017-08-21] MEDS ORDERED: predniSONE 20 MG TAB PO SCH (21:00)
[2017-08-22] MEDS ORDERED: levoFLOXacin 250 MG TAB PO SCH (09:00)
[2017-08-22] MEDS ORDERED: FUROSEMIDE 20 MG TABLET PO SCH (09:00)
[2017-08-23 20:10] LABS: Hepatitis C Virus RNA (PCR)log <1.18 log IU/mL
== END 2017-08-21 18:04 | disposition home health service (06) ==
LOC: ER 14:03 → ERHOLD 17:13 → 2ND 18:22
PROVIDERS: ADMIT Internal Medicine; ATTEND Internal Medicine
DX: J44.1 Chronic obstructive pulmonary disease with (acute) exacerbation (principal); I10 Essential (primary) hypertension; E78.5 Hyperlipidemia, unspecified; N28.9 Disorder of kidney and ureter, unspecified; K74.60 Unspecified cirrhosis of liver; K76.9 Liver disease, unspecified; D64.9 Anemia, unspecified; E66.01 Morbid (severe) obesity due to excess calories; Z68.41 Body mass index [BMI] 40.0-44.9, adult; G89.29 Other chronic pain; D69.6 Thrombocytopenia, unspecified; E87.6 Hypokalemia
CPT/HCPCS: 36415 ×3; 71045; 74170; 76705; 80048 ×2; 80053; 80061; 80076; 82607; 82728; 83036; 83540; 83735; 83880; 84132; 84466; 84484; 85025 ×2; 85610; 86317; 86705; 86706; 86708; 86803; 87040 ×2; 87070; 87205; 87522; 93005; 93306; 94640; 94760 ×2; 97116; 97163; 99285; G0378 ×2; J2930 ×7; Q9967

== ENCOUNTER 2017-08-31 10:11 | Observation (INO) | payer OTHER ==
--- NOTE | 2017-08-31 11:03 | EDPHYS ---
Physician Documentation [facility] Name: Ofelia Huizar Age: 76 yrs Sex: Female : 1940 Arrival Date: 08/31/2017 Time: 10:14 Bed 6 Private MD: Jose Martin Beckman ED Physician Pantera Caicedo HPI: 08/31 16:58 This 76 yrs old Female presents to ER via Wheelchair with complaints of Low kdr Pulse Rate. 16:58 The patient/family states that when home care came today, they noted that the patient's kdr HR was low and recommended that they take her to the ED. She had no other focal c/o and felt a little weak and dizzy. Onset: The symptoms/episode began/occurred. Severity of symptoms: At their worst the symptoms were very mild in the emergency department the symptoms are unchanged. The patient has not experienced similar symptoms in the past. The patient has been recently seen by a physician:. Historical: - Allergies: 10:23 No Known Allergies; aj - Home Meds: 10:23 Simvastatin Oral [Active]; carvedilol oral oral [Active]; Lyrica Oral [Active]; aj - PMHx: 10:23 Bronchitis; High Cholesterol; Hypertension; aj - PSHx: 10:23 None; aj - Immunization history:: Adult Immunizations up to date. - Social history:: Smoking status: Patient/guardian denies using tobacco. - Ebola Screening: : Patient denies exposure to infectious person Patient denies travel to an Ebola-affected area in the 21 days before illness onset No symptoms or risks identified at this time. ROS: 16:58 Constitutional: Negative for fever, chills, and weight loss, Eyes: Negative for injury, kdr pain, redness, and discharge, ENT: Negative for injury, pain, and discharge, Neck: Negative for injury, pain, and swelling, Cardiovascular: Negative for chest pain, palpitations, and edema, Respiratory: Negative for shortness of breath, cough, wheezing, and pleuritic chest pain, Abdomen/GI: Negative for abdominal pain, nausea, vomiting, diarrhea, and constipation, Back: Negative for injury and pain, : Negative for injury, bleeding, discharge, and swelling, MS/Extremity: Negative for injury and deformity, Skin: Negative for injury, rash, and discoloration, Neuro: Negative for headache, weakness, numbness, tingling, and seizure activity. Psych: Negative for depression, anxiety, suicide ideation, homicidal ideation, and hallucinations, Allergy/Immunology: Negative for hives, rash, and allergies, Endocrine: Negative for neck swelling, polydipsia, polyuria, polyphagia, and marked weight changes, Hematologic/Lymphatic: Negative for swollen nodes, abnormal bleeding, and unusual bruising. Exam: 16:58 Constitutional: This is a well developed, well nourished patient who is awake, alert, kdr and in no acute distress. Head/Face: Normocephalic, atraumatic. Eyes: Pupils equal round and reactive to light, extra-ocular motions intact. Lids and lashes normal. Conjunctiva and sclera are non-icteric and not injected. Cornea within normal limits. Periorbital areas with no swelling, redness, or edema. Neck: Trachea midline, no thyromegaly or masses palpated, and no cervical lymphadenopathy. Supple, full range of motion without nuchal rigidity, or vertebral point tenderness. No Meningismus. Chest/axilla: Normal chest wall appearance and motion. Nontender with no deformity. No lesions are appreciated. Respiratory: Lungs have equal breath sounds bilaterally, clear to auscultation and percussion. No rales, rhonchi or wheezes noted. No increased work of breathing, no retractions or nasal flaring. Abdomen/GI: Soft, non-tender, with normal bowel sounds. No distension or tympany. No guarding or rebound. No evidence of tenderness throughout. Back: No spinal tenderness. No costovertebral tenderness. Full range of motion. Skin: Warm, dry with normal turgor. Normal color with no rashes, no lesions, and no evidence of cellulitis. MS/ Extremity: Pulses equal, no cyanosis. Neurovascular intact. Full, normal range of motion. Neuro: Awake and alert, GCS 15, oriented to person, place, time, and situation. Cranial nerves II-XII grossly intact. Motor strength 5/5 in all extremities. Sensory grossly intact. Cerebellar exam normal. Normal gait. Psych: Awake, alert, with orientation to person, place and time. Behavior, mood, and affect are within normal limits. 16:58 Cardiovascular: Rate: bradycardic, Rhythm: regular, Pulses: no pulse deficits are appreciated, Heart sounds: normal, Edema: 4+ edema to level of left ankle, left foot, left toes, right ankle, right foot and right toes. Vital Signs: 10:23 BP 116 / 46; Pulse 49; Resp 16; Temp 97.5; Pulse Ox 95% on R/A; Weight 92.53 kg; Height aj 5 ft. 0 in. (152.40 cm); 11:33 BP 146 / 61; Pulse 48; Resp 18; Pulse Ox 100% on R/A; ag 12:44 BP 125 / 46; Pulse 49; Resp 18; Pulse Ox 99% ; rv 10:23 Body Mass Index 39.84 (92.53 kg, 152.40 cm) aj MDM: 11:03 Patient medically screened. kdr 16:58 Data reviewed: vital signs, nurses notes, lab test result(s), radiologic studies. kdr Counseling: I had a detailed discussion with the patient and/or guardian regarding: the historical points, exam findings, and any diagnostic results supporting the discharge/admit diagnosis, lab results, radiology results, the need for further work-up and treatment in the hospital. Physician consultation: Paresh Soto DO. 08/31 10:42 Order name: Basic Metabolic Panel [facility] 08/31 10:42 Order name: BNP [facility] 08/31 10:42 Order name: CBC with Diff [facility] 08/31 10:42 Order name: LFT's [facility] 08/31 10:42 Order name: Magnesium [facility] 08/31 10:42 Order name: PT-INR [facility] 08/31 10:42 Order name: Ptt, Activated [facility] 08/31 10:42 Order name: Troponin (emerg Dept Use Only) [facility] 08/31 10:42 Order name: XRAY Chest (1 view) [facility] 08/31 10:42 Order name: EKG; Complete Time: 10:43 [facility] 08/31 10:42 Order name: Cardiac monitoring; Complete Time: 12:23 [facility] 08/31 11:24 Order name: CBC Smear Scan [facility] 08/31 12:40 Order name: US [facility] 08/31 10:42 Order name: EKG - Nurse/Tech; Complete Time: 12:23 [facility] 08/31 10:42 Order name: IV Saline Lock; Complete Time: 11:59 [facility] 08/31 10:42 Order name: Labs collected and sent; Complete Time: 11:59 [facility] 08/31 10:42 Order name: O2 Per Protocol; Complete Time: 12: [facility] 08/31 10:42 Order name: O2 Sat Monitoring; Complete Time: 12: [facility] 08/31 10:43 Order name: Urine Dipstick-Ancillary (obtain specimen) [facility] Administered Medications: 11:46 Drug: Lasix 40 mg Route: IVP; Site: right antecubital; rv 12:01 Follow up: Response: No adverse reaction rv Disposition: 08/31/17 11:03 Hospitalization ordered by Paresh Soto for Observation. Preliminary diagnosis are Bradycardia, unspecified, Weakness. - Bed requested for Telemetry/MedSurg (observation). - Status is Observation. rv - Condition is Fair. - Problem is new. - Symptoms have improved. UTI on Admission? No Signatures: Dispatcher [employer] EDMS Delmis Stone Amanda, RN RN aj Rittger, Kevin, MD MD kdr Issa Trevino RN RN rv Corrections: (The following items were deleted from the chart) 12:37 11:03 Hospitalization Ordered by Paresh Soto DO for Observation. Preliminary bd diagnosis is Bradycardia, unspecified; Weakness. Bed requested for Telemetry/MedSurg (observation). Status is Observation. Condition is Fair. Problem is new. Symptoms have improved. UTI on Admission? No. kdr 12:59 12:37 08/31/2017 11:03 Hospitalization Ordered by Paresh Soto DO for Observation. rv Preliminary diagnosis is Bradycardia, unspecified; Weakness. Bed requested for Telemetry/MedSurg (observation). Status is Observation. Condition is Fair. Problem is new. Symptoms have improved. UTI on Admission? No. bd
--- NOTE | 2017-08-31 11:03 | ER ---
Nurse's Notes [facility] Name: Ofelia Huizar Age: 76 yrs Sex: Female : 1940 Arrival Date: 08/31/2017 Time: 10:14 Bed 6 Private MD: Jose Martin Beckman Diagnosis: Bradycardia, unspecified;Weakness Presentation: 08/31 10:21 Presenting complaint: Patient states: Patient sent to ER to evaluate low pulse rate aj taken by PT at home. Patient HR is 49, recently started on Carvedilol. Normal resting HR 60, per patient's home health records. Patient awake and alert, reports mild dizziness. Transition of care: patient was not received from another setting of care. Onset of symptoms was August 31, 2017. Care prior to arrival: None. 10:21 Method Of Arrival: Wheelchair aj 10:21 Acuity: BIB 3 aj 11:10 Risk Assessment: Do you want to hurt yourself or someone else? Patient reports no rv desire to harm self or others. Initial Sepsis Screen: Does the patient meet any 2 criteria? Does the patient have a suspected source of infection? No. Patient's initial sepsis screen is negative. Triage Assessment: 10:23 General: Appears in no apparent distress. comfortable, Behavior is calm, cooperative, aj appropriate for age. Pain: Denies pain. Neuro: Level of Consciousness is awake, alert, obeys commands, Oriented to person, place, time, situation, Appropriate for age Reports dizziness. Cardiovascular: Capillary refill < 3 seconds in bilateral fingers Patient's skin is warm and dry. Respiratory: Airway is patent Respiratory effort is even, unlabored, Respiratory pattern is regular, symmetrical. Derm: Skin is intact, is healthy with good turgor, Skin is pink, warm \T\ dry. normal. Historical: - Allergies: 10:23 No Known Allergies; aj - Home Meds: 10:23 Simvastatin Oral [Active]; carvedilol oral oral [Active]; Lyrica Oral [Active]; aj - PMHx: 10:23 Bronchitis; High Cholesterol; Hypertension; aj - PSHx: 10:23 None; aj - Immunization history:: Adult Immunizations up to date. - Social history:: Smoking status: Patient/guardian denies using tobacco. - Ebola Screening: : Patient denies exposure to infectious person Patient denies travel to an Ebola-affected area in the 21 days before illness onset No symptoms or risks identified at this time. Screenin:10 Abuse screen: Denies threats or abuse. Nutritional screening: No deficits noted. rv Tuberculosis screening: No symptoms or risk factors identified. Fall Risk None identified. Assessment: 11:08 General: Appears uncomfortable, obese, Behavior is calm, cooperative, Reports dizziness rv and weakness. Pain: Denies pain. Neuro: No deficits noted. Cardiovascular: Rhythm is sinus bradycardia. GI: No signs and/or symptoms were reported involving the gastrointestinal system. : No signs and/or symptoms were reported regarding the genitourinary system. EENT: No signs and/or symptoms were reported regarding the EENT system. Derm: No signs and/or symptoms reported regarding the dermatologic system. Vital Signs: 10:23 BP 116 / 46; Pulse 49; Resp 16; Temp 97.5; Pulse Ox 95% on R/A; Weight 92.53 kg; Height aj 5 ft. 0 in. (152.40 cm); 11:33 BP 146 / 61; Pulse 48; Resp 18; Pulse Ox 100% on R/A; ag 12:44 BP 125 / 46; Pulse 49; Resp 18; Pulse Ox 99% ; rv 10:23 Body Mass Index 39.84 (92.53 kg, 152.40 cm) ED Course: 10:14 Patient arrived in ED. mr 10:14 Jose Martin Beckman MD is Private Physician. mr 10:18 Pantera Caicedo MD is Attending Physician. kdr 10:22 Triage completed. aj 10:23 Arm band placed on left wrist. Patient placed in an exam room. aj 10:53 EKG done, by audio video technician. reviewed by Pantera Caicedo MD. sm3 10:57 XRAY Chest (1 view) In Process Unspecified. EDMS 11:02 Paresh Soto DO is Hospitalizing Provider. kdr 11:59 Dayne Mueller, BAILEY is Primary Nurse. ae1 12:18 Patient has correct armband on for positive identification. Bed in low position. Call rv light in reach. Side rails up X 1. Pulse ox on. NIBP on. 12:56 Patient admitted, IV remains in place. intact. rv 12:57 No provider procedures requiring assistance completed. rv Administered Medications: 11:46 Drug: Lasix 40 mg Route: IVP; Site: right antecubital; rv 12:01 Follow up: Response: No adverse reaction rv Outcome: 11:03 Decision to Hospitalize by Provider. kdr 12:55 Admitted to Tele accompanied by tech, via wheelchair, room 429, with chart. rv 12:55 Condition: stable 12:59 Patient left the ED. rv Signatures: Dispatcher [employer] EDKarma Cruz, RN RN Pantera Denton MD MD kdr Rivera, Maria mr Gallardo, Dayne Segura RN RN ae1 Danay Bosch sm3 Issa Trevino RN RN rv
[2017-08-31 11:05] LABS: Protime INR 1.04
[2017-08-31 11:06] LABS: Absolute Lymphocytes (CBC) 0.8 K/uL (0.7-4.9); Absolute Monocytes 0.4 K/uL (0.1-1.3); Absolute Neutrophil 7.8 K/uL (1.8-8.0); Basophils % 0.2 % (0-1.3); Eosinophils % 0.3 % (0-4.4); Hematocrit 40.9 % (36.0-45.0); Lymphocytes % 8.5 % (15.3-44.8); MCV 97.4 fL (80-100); MPV 13.5 fL (7.6-11.3); Monocytes % 4.5 % (3.3-12.3)
[2017-08-31 11:17] LABS: Albumin 2.9 g/dL (3.2-5.5); Bilirubin Direct 0.3 mg/dL (0-0.2); Bilirubin Total 1.1 mg/dL (0.3-1.2); Magnesium 2.3 mg/dL (1.8-2.5); Protein, Total 6.8 g/dL (6.0-8.3)
[2017-08-31 11:24] LABS: Blood Morphology Comment NOT SEEN (NOT SEEN); Platelet Estimate DECR; Urine White Blood Cell Casts OK
--- NOTE | 2017-08-31 11:34 | RAD REPORT ---
EXAM DESCRIPTION: Velasquez Single View08/31/2017 10:59 am CLINICAL HISTORY: sob COMPARISON: August 28, 2017 FINDINGS: The lungs appear clear of acute infiltrate. The heart is mildly enlarged IMPRESSION: No acute abnormalities displayed
[2017-08-31] MEDS ORDERED: ACETAMINOPHEN 500 MG TAB PO PRN (11:41)
[2017-08-31] MEDS ORDERED: ALBUTEROL 2.5 MG/3 ML NEB SOL NEB PRN ×2 (11:41)
[2017-08-31] MEDS ORDERED: IPRATROPIUM BROM 0.5MG/2.5ML NEB PRN ×2 (11:41)
[2017-08-31] MEDS ORDERED: TRAMADOL HCL 50 MG TAB PO PRN (11:41)
[2017-08-31] MEDS ORDERED: ONDANSETRON 4 MG/2 ML VIAL IV PRN (11:41)
[2017-08-31] MEDS ORDERED: FUROSEMIDE 40 MG/4 ML VIAL ONE (11:42)
--- NOTE | 2017-08-31 11:54 | P.HP ---
Certification for Inpatient Patient admitted to: Observation With expected LOS: <2 Midnights Patient will require the following post-hospital care: Other Practitioner: I am a practitioner with admitting privileges, knowledge of patient current condition, hospital course, and medical plan of care. Services: Services provided to patient in accordance with Admission requirements found in Title 42 Section 412.3 of the Code of Federal Regulations Patient History Date of Service: 08/31/17 Primary Care Provider: Dr. Piña Reason for admission: Bradycardia History of Present Illness: 76-year-old female presented emergency room after she was sent by home health due to bradycardia. Patient was recent hospitalized for COPD exacerbation. Patient had home health and physical therapy at home. Today home health noted that her heart rate was down in the 40s. She was sent to the ER for evaluation. Patient reported some mild shortness of breath. She has noted some mild edema to the lower extremities. Patient is taking Lasix but is used as needed. She is without any significant wheezing. No fever, chills. No nausea vomiting noted. In the ER she was evaluated. Heart rate was above 50. Patient was assessed. White count 9.0. Hemoglobin 13. Platelet count 56. Sodium 137,potassium 4.0, creatinine 1.24 with a GFR 42. Glucose 176. AST 85, ALT 92. Troponin less than 0.03. Chest x-ray showed no pneumonia. Due to the nature of her symptoms the patient was admitted for observation. When I saw the patient ER, she did not appear in any distress. Heart rate was easily above 55.Patient previously taking losartan hydrochlorothiazide. This was discontinued on her last visit due to renal insufficiency. Patient was placed on carvedilol. Patient taking carvedilol 6.25 mg 1 pill twice daily. Patient also recently evaluated for fatty liver, mild cirrhosis, thrombocytopenia. Follow up lab showed that she has new diagnosis of hepatitis- C. Allergies No Known Allergies Allergy (Verified 08/19/17 21:36) Home medications list reviewed: Yes Home Medications: Pregabalin [Lyrica*] 100 mg PO DAILY 08/19/17 Rosuvastatin Calcium [Crestor] 20 mg PO DAILY 08/19/17 Tramadol HCl [Ultram] 50 mg PO TID PRN 08/19/17 Albuterol Neb [Proventil 0.083% Neb Soln] 1 amp NEB TID PRN #90 amp 08/21/17 Budesonide/Formoterol Fumarate [Symbicort 160-4.5 Mcg Inhaler] 2 puff IH BID #1 hfa.aer.ad 08/21/17 Carvedilol [Coreg*] 6.25 mg PO BID #60 tab 08/21/17 Furosemide [Lasix*] 20 mg PO DAILY PRN #30 tab 08/21/17 Prednisone [Prednisone*] 20 mg PO SEECOM #15 tab 08/21/17 - Past Medical/Surgical History Diabetic: No -: Hypertension -: Hyperlipidemia -: Mild cirrhosis, fatty liver, hepatitis-C -: Thrombocytopenia -: Chronic renal disease -: COPD -: CHF, diastolic dysfunction -: Chronic pain -: eye surgery Psychosocial/ Personal History: Patient is - Family History Family History: Reviewed- Non-Contributory - Social History Smoking Status: Never smoker Alcohol use: No CD- Drugs: No Caffeine use: Yes Place of Residence: Home Review of Systems General: Weakness, As per HPI Eyes: Unremarkable ENT: Unremarkable Respiratory: Shortness of Breath, As per HPI Cardiovascular: Edema, As per HPI Gastrointestinal: Unremarkable Genitourinary: Unremarkable Musculoskeletal: Pedal edema, As per HPI Integumentary: As per HPI Neurological: As per HPI Lymphatics: Unremarkable Physical Examination - Physical Exam General: Alert, In no apparent distress, Oriented x3, Cooperative HEENT: Atraumatic, Normocephalic, PERRLA, Mucous membr. moist/pink Neck: Supple, No Thyromegaly Respiratory: Expiratory wheezes (Mild expiratory wheezing bilateral but good air movement.) Cardiovascular: Abnormal pulses (Mild bradycardia rate around 55) Gastrointestinal: Normal bowel sounds, Soft and benign, Non-distended, No tenderness, No masses, No rebound, No guarding Musculoskeletal: No erythema, No tenderness, No warmth Integumentary: No erythema, No warmth, No cyanosis, Tenderness/swelling (Less than 1+ pitting edema to the lower extremities bilateral) Neurological: Normal speech, Normal strength at 5/5 x4 extr, Normal tone, Normal affect Lymphatics: No axilla or inguinal lymphadenopathy - Studies Laboratory Data (last 24 hrs) 08/31/17 10:45: PT 12.3, INR 1.04, APTT 25.4 08/31/17 10:45: WBC 9.0 D, Hgb 13.9, Hct 40.9, Plt Count 56 L D 08/31/17 10:45: B-Natriuretic Peptide 170 H 08/31/17 10:45: Sodium 137, Potassium 4.0, BUN 33 H, Creatinine 1.24 H, Glucose 176 H, Magnesium 2.3, Total Bilirubin 1.1, AST 85 H, ALT 92 H, Alkaline Phosphatase 145 H Assessment and Plan - Problems (Diagnosis) (1) Bradycardia Current Visit: Yes Status: Acute Plan: Bradycardia likely from new medication. Patient appeared asymptomatic. Will discontinue carvedilol. Will change to Norvasc 2.5 mg once daily. Will monitor overnight. Anticipate possible discharge tomorrow. What physical therapy ambulate and assess. New diagnosis of hepatitis-C noted. Patient will need to see GI as an outpatient. Renal insufficiency noted likely from hepatitis-C. This appears chronic. Will have nephrology assess. Renal ultrasound obtained. No need for cardiac evaluation at this time. Previous echocardiogram showed ejection fraction 53%. Patient with mild edema. Likely underlying diastolic dysfunction. Will restart Lasix. Will teach on 1500 cc per day fluid restriction. (2) Hepatitis C Current Visit: Yes Status: Acute Plan: New diagnosis noted. Patient had elevated liver function tests on the last hospitalization. Abdominal ultrasound on last visit showed fatty liver with mild cirrhosis. Liver function tests slightly elevated but stable since last admission. Patient will need to follow up with GI as an outpatient to further evaluate and treat. Will teach on hepatitis C Qualifiers: Viral hepatitis chronicity: chronic Hepatic coma status: without hepatic coma Qualified Code(s): B18.2 - Chronic viral hepatitis C (3) Chronic renal disease Current Visit: Yes Status: Suspected Plan: Suspect chronic renal disease likely from underlying hepatitis-C. Overall stable. Patient will need Lasix due to edema with possible underlying diastolic CHF. Nephrology consulted to further assess. Will monitor closely. Blood pressure medications switched to Norvasc. Patient previously taking losartan/hydrochlorothiazide. This was discontinued on the last visit due to renal insufficiency. At this time carvedilol will be discontinued due to bradycardia. Will discuss further with nephrology. Qualifiers: Chronic kidney disease stage: stage 2 (mild) Qualified Code(s): N18.2 - Chronic kidney disease, stage 2 (mild) (4) Acute renal insufficiency Current Visit: No Status: Acute Plan: Continue as above. Await recommendations from nephrology. (5) COPD (chronic obstructive pulmonary disease) Current Visit: No Status: Chronic Plan: This appears stable at this time. Patient recently hospitalized for COPD exacerbation. Will continue with prednisone. Will continue with COPD treatment. Qualifiers: COPD type: chronic bronchitis (6) Elevated LFTs Onset Date: 08/21/17 Current Visit: No Status: Acute Plan: Likely from hepatitis-C , will continue as above (7) Liver lesion, right lobe Current Visit: No Status: Acute Plan: This will need to be monitored as an outpatient. Recommendation on previous hospitalization was to recheck CT scan or MRI. (8) Lower extremity edema Onset Date: 08/21/17 Current Visit: No Status: Acute Plan: Mild edema noted to the lower extremities. She had been given Lasix as needed as an outpatient. Patient needs to be taught 1500 cc per day fluid restriction. Will continue with Lasix. (9) Anemia Current Visit: No Status: Chronic Plan: This appears chronic likely of chronic disease.. Patient with B12 deficiency. Overall stable. Qualifiers: Anemia type: other cause Other causes of anemia: chronic disease, other Qualified Code(s): D63.8 - Anemia in other chronic diseases classified elsewhere (10) Chronic pain Current Visit: No Status: Chronic Plan: Will continue with her pain medication. Qualifiers: (11) HTN (hypertension) Current Visit: No Status: Chronic Plan: Carvedilol discontinued due to bradycardia. Will start Norvasc low dose. Patient previously taking losartan hydrochlorothiazide but this was discontinued due to renal insufficiency. Will monitor closely. Qualifiers: (12) Hyperlipidemia Current Visit: No Status: Chronic Plan: Will hold her Crestor at this time due to recent diagnosis of hepatitis-C with elevated liver function. 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 Patient also with hepatitis-C. She will need to follow up with GI for treatment. (14) Obesity Current Visit: No Status: Chronic Plan: Will address lifestyle modification education. Qualifiers: (15) Thrombocytopenia Onset Date: 08/21/17 Current Visit: No Status: Chronic Plan: Likely from cirrhosis. Will monitor closely. Discharge Plan: Home Plan to discharge in: 24 Hours - Advance Directives Does patient have a Living Will: No Does patient have a Durable POA for Healthcare: No - Code Status/Comfort Care Code Status Assessed: Yes Time Spent Managing Pts Care (In Minutes): 55
--- NOTE | 2017-08-31 12:40 | RAD REPORT ---
EXAM DESCRIPTION: US - Renal Ultrasound-Complete - 08/31/2017 12:14 pm CLINICAL HISTORY: . Chronic renal disease COMPARISON: Aug 20 2017 cat scan FINDINGS: The right kidney measures 9 cm with a normal echotexture. The left kidney measures 10 cm with a normal echotexture. Hydronephrosis is not seen. IMPRESSION: Unremarkable renal ultrasound.
[2017-08-31] MEDS: FUROSEMIDE 20 MG TABLET PO SCH (17:48)
[2017-08-31] MEDS: ARFORMOTEROL TARTRATE 15 MCG/2 ML VIAL.NEB NEB SCH (20:00)
[2017-09-01 04:57] LABS: Absolute Lymphocytes (CBC) 1.3 K/uL (0.7-4.9); Absolute Monocytes 0.5 K/uL (0.1-1.3); Absolute Neutrophil 5.2 K/uL (1.8-8.0); Basophils % 0.1 % (0-1.3); Eosinophils % 0.9 % (0-4.4); Hematocrit 36.1 % (36.0-45.0); Lymphocytes % 17.9 % (15.3-44.8); MCH 33.6 pg (27.0-35.0); MCV 96.4 fL (80-100); MPV 12.3 fL (7.6-11.3); Monocytes % 7.6 % (3.3-12.3); RBC Red Blood Cell Count 3.74 M/uL (3.86-4.86)
[2017-09-01 05:14] LABS: Albumin 2.5 g/dL (3.2-5.5); Bilirubin Total 0.8 mg/dL (0.3-1.2); Magnesium 2.3 mg/dL (1.8-2.5); Potassium 3.3 mEq/L (3.6-5.0); Protein, Total 5.9 g/dL (6.0-8.3)
[2017-09-01 05:41] VITALS: BMI 37.8
--- NOTE | 2017-09-01 06:58 | EKG ---
Test Date: 2017-08-31 Test Time: 10:41:38 [employer] Developer: GEOVANNA MEASUREMENT RESULTS: Intervals: Rate: 51 SC: 138 QRSD: 84 QT: 446 QTc: 411 [place]: P: 62 SC: 138 QRS: 40 T: 48 INTERPRETIVE STATEMENTS: Sinus bradycardia Cannot rule out Anterior infarct, age undetermined Abnormal ECG Compared to ECG 08/19/2017 14:33:37 Myocardial infarct finding now present Sinus rhythm no longer present Electronically Signed On 09-01-17 06:55:41 CDT by Ravi Kat
[2017-09-01] MEDS ORDERED: METHYLPREDNISOLONE 40 MG INJ IV ONE (07:48)
--- NOTE | 2017-09-01 08:05 | RAD REPORT ---
EXAM DESCRIPTION: RAD - Chest Pa And Lat (2 Views) - 09/01/2017 6:53 am CLINICAL HISTORY: COPD, CHF COMPARISON: August 31 TECHNIQUE: PA and lateral views of the chest were obtained. FINDINGS: The lungs are clear of a new or progressive failure, infiltrate or mass. Interstitial jennifer ings are prominent but not substantially different from prior imaging. No significant failure or volu me overload changes identifiable at this time. Heart size is normal and central vasculature is with in normal limits. No pleural effusion or pneumothorax seen. No acute bony finding noted. No aortic abnormality. IMPRESSION: Chronic interstitial lung disease is present with no focal infiltrate, mass or significa nt failure finding. No new or progressive finding from August 31.
[2017-09-01] MEDS: ARFORMOTEROL TARTRATE 15 MCG/2 ML VIAL.NEB NEB SCH (08:44)
[2017-09-01 08:59] VITALS: O2SAT 97
[2017-09-01] MEDS ORDERED: POTASSIUM CL SA 10 MEQ TAB PO ONE (09:00)
[2017-09-01] MEDS ORDERED: predniSONE 10 MG TAB PO SCH (09:00)
[2017-09-01] MEDS ORDERED: ENOXAPARIN 40 MG/0.4 ML SQ SCH (09:00)
[2017-09-01] MEDS ORDERED: AMLODIPINE 2.5 MG TAB PO SCH (09:00)
[2017-09-01] MEDS: FUROSEMIDE 20 MG TABLET PO SCH (10:24)
--- NOTE | 2017-09-01 10:29 | P.CNS ---
Date of Consult: 09/01/17 Reason for Consult: SUMAN/ CKD Requesting Physician: Paresh Soto Primary Care Provider: Dr. Piña Chief Complaint: Bradycardia History of Present Illness: 76-year-old female presented emergency room after she was sent by home health due to bradycardia. Patient was recent hospitalized for COPD exacerbation. Patient had home health and physical therapy at home. Today home health noted that her heart rate was down in the 40s. She was sent to the ER for evaluation. Patient reported some mild shortness of breath. She has noted some mild edema to the lower extremities. Patient is taking Lasix but is used as needed. She is without any significant wheezing. No fever, chills. No nausea vomiting noted. Patient presented with bradycardia. Patient medication had recently being changed on her last admission. Patient was sent home on carvedilol. This has been discontinued. For her hypertension patient will continue with Norvasc 2.5 mg 1 pill once daily. Recommendation is to maintain blood pressures less 150/ 80. Further adjustment can be done by her PCP. On her last admission hepatitis panel was pending. Hepatitis panel now reviewed shows hepatitis-C. This is likely chronic. Recommendations for the patient follow up with GI as an outpatient to further evaluate and monitor. Patient may benefit with treatment. Patient also with underlying COPD. At discharge she will continue with prednisone 10 mg 1 pill daily for 10 days. Patient will continue with her medications Symbicort and Pro air. Recommendations for the patient follow up with pulmonology as an outpatient to further monitor. Patient has underlying renal insufficiency. Patient likely has chronic renal disease related to her hepatitis. Patient evaluated by Nephrology. No intervention was needed at this time. Renal ultrasound was unremarkable. Recommendation is to recheck his BMP in 1 week. Recommendation is to follow up with nephrology in 1-2 weeks to monitor progress and continue her care. Recommendation on no future nonsteroidal anti-inflammatories. Recommendation on future medications to be renally dosed. Patient has anemia likely of chronic disease. This can be further monitored as an outpatient. Patient has thrombocytopenia likely related to her hepatitis-C. On previous hospitalization, ultrasound and CT scan showed fatty liver with mild cirrhosis. Patient also had an abnormal liver lesion. This to be followed up as an outpatient. Patient likely has underlying diastolic CHF. Patient will continue with a 1500 cc per day fluid restriction. Patient will continue with Lasix 20 mg daily. Patient is to monitor her weight daily. If her weight increases by more than 5 lb she is to contact her PCP for further recommendation. Further adjustment in medication can be done by her PCP. 08/31/17 11:03 Hospitalization ordered by Paresh Soto for Observation. Preliminary diagnosis are Bradycardia, unspecified, Weakness. Allergies No Known Allergies Allergy (Verified 08/19/17 21:36) Home medications list reviewed: Yes Home Medications: Albuterol Neb [Proventil 0.083% Neb Soln] 1 vial IH BID 08/31/17 Budesonide/Formoterol Fumarate [Symbicort 160-4.5 Mcg Inhaler] 2 puff IH BID Pregabalin [Lyrica] 1 cap PO TID 08/31/17 Rosuvastatin Calcium [Crestor] 1 tab PO BEDTIME 08/31/17 Tramadol HCl [Ultram] 1 tab PO TID 08/31/17 Amlodipine [Norvasc*] 2.5 mg PO DAILY #30 tab 09/01/17 Furosemide [Lasix*] 1 tab PO DAILY #30 tab 09/01/17 Prednisone [Deltasone*] 10 mg PO DAILY #10 tab 09/01/17 - Past Medical/Surgical History Diabetic: No -: Hypertension -: Hyperlipidemia -: Mild cirrhosis, fatty liver, hepatitis-C -: Thrombocytopenia -: Chronic renal disease -: COPD -: CHF, diastolic dysfunction -: Chronic pain -: eye surgery -: hysterectomy Psychosocial/ Personal History: Patient is - Family History Father Medical History: Heart disease, Cancer - Social History Alcohol use: No CD- Drugs: No Caffeine use: Yes Place of Residence: Home Review of Systems 10-point ROS is otherwise unremarkable General: Weakness, Malaise Cardiovascular: Edema Physical Examination Temp Pulse Resp BP Pulse Ox 97.2 F 50 24 H 137/52 L 97 09/01/17 08:00 09/01/17 08:00 09/01/17 08:00 09/01/17 08:00 09/01/17 08:00 General: Oriented x3, Cooperative HEENT: Mucous membr. moist/pink Neck: Supple Respiratory: Clear to auscultation bilaterally Cardiovascular: Regular rate/rhythm, No rubs, Edema Gastrointestinal: Soft and benign, Non-distended Musculoskeletal: No clubbing, No contractures Integumentary: No rashes, No cyanosis Neurological: Normal speech Laboratory Data (last 24 hrs) 08/31/17 10:45: PT 12.3, INR 1.04, APTT 25.4 08/31/17 10:45: WBC 9.0 D, Hgb 13.9, Hct 40.9, Plt Count 56 L D 08/31/17 10:45: B-Natriuretic Peptide 170 H 08/31/17 10:45: Sodium 137, Potassium 4.0, BUN 33 H, Creatinine 1.24 H, Glucose 176 H, Magnesium 2.3, Total Bilirubin 1.1, AST 85 H, ALT 92 H, Alkaline Phosphatase 145 H Imagings Data: EXAM DESCRIPTION: US - Renal Ultrasound-Complete - 08/31/2017 12:14 pm CLINICAL HISTORY: . Chronic renal disease COMPARISON: Aug 20 2017 cat scan FINDINGS: The right kidney measures 9 cm with a normal echotexture. The left kidney measures 10 cm with a normal echotexture. Hydronephrosis is not seen. IMPRESSION: Unremarkable renal ultrasound. Conclusions/Impression: A/ SUMAN/ CKD III. HTN with CKD. Diastolic CHF, chronic. Hypokalemia. Hypocalcemia. HCV/ Liver Cirrhosis/ Thrombocytopenia. Bradycardia in the setting of Coreg. P/ Continue current POC and Medications. Case discussed with Dr. Soto. May need to discontinue or reduce Coreg. No NSAIDs. Low sodium diet. AM labs. Daily weight. Thank you kindly for the consultation.
[2017-09-01 12:51] VITALS: BP 128/55; TEMP 97.9
--- NOTE | 2017-09-01 13:28 | P.DS ---
Admission Date: 08/31/17 Discharge Date: 09/01/17 Primary Care Provider: Dr. Piña Disposition: ROUTINE DISCHARGE Discharge Condition: GOOD Reason for Admission: Bradycardia Consultations: Nephrology-Dr. Warner Procedures: Renal ultrasound: Unremarkable Chest x-ray shows chronic interstitial disease - Problems (1) Bradycardia Current Visit: Yes Status: Acute (2) Hepatitis C Current Visit: Yes Status: Acute Qualifiers: Viral hepatitis chronicity: chronic Hepatic coma status: without hepatic coma Qualified Code(s): B18.2 - Chronic viral hepatitis C (3) Chronic renal disease Current Visit: Yes Status: Suspected Qualifiers: Chronic kidney disease stage: stage 2 (mild) Qualified Code(s): N18.2 - Chronic kidney disease, stage 2 (mild) (4) Acute renal insufficiency Current Visit: No Status: Acute (5) COPD (chronic obstructive pulmonary disease) Current Visit: No Status: Chronic Qualifiers: COPD type: chronic bronchitis (6) Elevated LFTs Onset Date: 08/21/17 Current Visit: No Status: Acute (7) Liver lesion, right lobe Current Visit: No Status: Acute (8) Lower extremity edema Onset Date: 08/21/17 Current Visit: No Status: Acute (9) Anemia Current Visit: No Status: Chronic Qualifiers: Anemia type: other cause Other causes of anemia: chronic disease, other Qualified Code(s): D63.8 - Anemia in other chronic diseases classified elsewhere (10) Chronic pain Current Visit: No Status: Chronic Qualifiers: (11) HTN (hypertension) Current Visit: No Status: Chronic Qualifiers: (12) Hyperlipidemia Current Visit: No Status: Chronic Qualifiers: (13) 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 Current Visit: No Status: Chronic (14) Obesity Current Visit: No Status: Chronic Qualifiers: Obesity type: due to excess calories Obesity classification: adult class 2 (BMI 35 - 39.9) Serious obesity comorbidity presence: with serious comorbidity Body mass index: BMI 37.0-37.9 Qualified Code(s): E66.01 - Morbid (severe) obesity due to excess calories; Z68.37 - Body mass index (BMI) 37.0-37.9, adult (15) Thrombocytopenia Onset Date: 08/21/17 Current Visit: No Status: Chronic Brief History of Present Illness: 76-year-old female presented emergency room after she was sent by home health due to bradycardia. Patient was recent hospitalized for COPD exacerbation. Patient had home health and physical therapy at home. Today home health noted that her heart rate was down in the 40s. She was sent to the ER for evaluation. Patient reported some mild shortness of breath. She has noted some mild edema to the lower extremities. Patient is taking Lasix but is used as needed. She is without any significant wheezing. No fever, chills. No nausea vomiting noted. In the ER she was evaluated. Heart rate was above 50. Patient was assessed. White count 9.0. Hemoglobin 13. Platelet count 56. Sodium 137,potassium 4.0, creatinine 1.24 with a GFR 42. Glucose 176. AST 85, ALT 92. Troponin less than 0.03. Chest x-ray showed no pneumonia. Due to the nature of her symptoms the patient was admitted for observation. When I saw the patient ER, she did not appear in any distress. Heart rate was easily above 55.Patient previously taking losartan hydrochlorothiazide. This was discontinued on her last visit due to renal insufficiency. Patient was placed on carvedilol. Patient taking carvedilol 6.25 mg 1 pill twice daily. Patient also recently evaluated for fatty liver, mild cirrhosis, thrombocytopenia. Follow up lab showed that she has new diagnosis of hepatitis- C. Hospital Course: Patient presented with bradycardia. Patient medication had recently being changed on her last admission. Patient was sent home on carvedilol. This has been discontinued. For her hypertension patient will continue with Norvasc 2.5 mg 1 pill once daily. Recommendation is to maintain blood pressures less 150/ 80. Further adjustment can be done by her PCP. On her last admission hepatitis panel was pending. Hepatitis panel now reviewed shows hepatitis-C. This is likely chronic. Recommendations for the patient follow up with GI as an outpatient to further evaluate and monitor. Patient may benefit with treatment. Patient also with underlying COPD. At discharge she will continue with prednisone 10 mg 1 pill daily for 10 days. Patient will continue with her medications Symbicort and Pro air. Recommendations for the patient follow up with pulmonology as an outpatient to further monitor. Patient has underlying renal insufficiency. Patient likely has chronic renal disease related to her hepatitis. Patient evaluated by Nephrology. No intervention was needed at this time. Renal ultrasound was unremarkable. Recommendation is to recheck his BMP in 1 week. Recommendation is to follow up with nephrology in 1-2 weeks to monitor progress and continue her care. Recommendation on no future nonsteroidal anti-inflammatories. Recommendation on future medications to be renally dosed. Patient has anemia likely of chronic disease. This can be further monitored as an outpatient. Patient has thrombocytopenia likely related to her hepatitis-C. On previous hospitalization, ultrasound and CT scan showed fatty liver with mild cirrhosis. Patient also had an abnormal liver lesion. This to be followed up as an outpatient. Patient likely has underlying diastolic CHF. Patient will continue with a 1500 cc per day fluid restriction. Patient will continue with Lasix 20 mg daily. Patient is to monitor her weight daily. If her weight increases by more than 5 lb she is to contact her PCP for further recommendation. Further adjustment in medication can be done by her PCP Vital Signs/Physical Exam: Temp Pulse Resp BP Pulse Ox 97.9 F 53 20 128/55 L 97 09/01/17 12:00 09/01/17 12:00 09/01/17 12:00 09/01/17 12:00 09/01/17 12:00 General: Alert, In no apparent distress, Oriented x3, Cooperative HEENT: Atraumatic Neck: Supple Respiratory: Expiratory wheezes (Minimal wheezing bilateral) Cardiovascular: Normal pulses, Regular rate/rhythm Gastrointestinal: Normal bowel sounds, Soft and benign, Non-distended, No tenderness, No masses, No rebound, No guarding Musculoskeletal: No erythema, No tenderness, No warmth Integumentary: No tenderness/swelling, No erythema, No warmth, No cyanosis Neurological: Normal speech, Normal strength at 5/5 x4 extr, Normal tone, Normal affect Laboratory Data at Discharge: WBC 7.1 K/uL (4.3-10.9) D 09/01/17 04:20 Hgb 12.6 g/dL (12.0-15.0) 09/01/17 04:20 Hct 36.1 % (36.0-45.0) 09/01/17 04:20 Plt Count 36 K/uL (152-406) L* D 09/01/17 04:20 PT 12.3 SECONDS (9.5-12.5) 08/31/17 10:45 INR 1.04 08/31/17 10:45 APTT 25.4 SECONDS (24.3-36.9) 08/31/17 10:45 Sodium 140 mEq/L (135-145) 09/01/17 04:20 Potassium 3.3 mEq/L (3.6-5.0) L 09/01/17 04:20 BUN 38 mg/dL (6-20) H 09/01/17 04:20 Creatinine 1.38 mg/dL (0.44-1.00) H 09/01/17 04:20 Glucose 116 mg/dL (65-120) 09/01/17 04:20 Magnesium 2.3 mg/dL (1.8-2.5) 09/01/17 04:20 Total Bilirubin 0.8 mg/dL (0.3-1.2) 09/01/17 04:20 AST 74 IU/L (10-42) H 09/01/17 04:20 ALT 79 IU/L (10-60) H 09/01/17 04:20 Alkaline Phosphatase 123 IU/L (42-121) H 09/01/17 04:20 B-Natriuretic Peptide 170 pg/ml (<=100) H 08/31/17 10:45 Home Medications: Albuterol Neb [Proventil 0.083% Neb Soln] 1 vial IH BID 08/31/17 Budesonide/Formoterol Fumarate [Symbicort 160-4.5 Mcg Inhaler] 2 puff IH BID Pregabalin [Lyrica] 1 cap PO TID 08/31/17 Rosuvastatin Calcium [Crestor] 1 tab PO BEDTIME 08/31/17 Tramadol HCl [Ultram] 1 tab PO TID 08/31/17 Amlodipine [Norvasc*] 2.5 mg PO DAILY #30 tab 09/01/17 Furosemide [Lasix*] 1 tab PO DAILY #30 tab 09/01/17 Prednisone [Deltasone*] 10 mg PO DAILY #10 tab 09/01/17 New Medications: Amlodipine [Norvasc*] 2.5 mg PO DAILY #30 tab Furosemide [Lasix*] 1 tab PO DAILY #30 tab Prednisone [Deltasone*] 10 mg PO DAILY #10 tab Patient Discharge Instructions: 1. Patient will need a follow up with her PCP in 1 week to follow up this hospitalization. 2. Patient presented with bradycardia. Medications have been adjusted. Patient will no longer take carvedilol. For her hypertension patient will continue with Norvasc 2.5 mg 1 pill once daily. Recommendation is to maintain blood pressures less 150/80. Further adjustment can be done by her PCP. 3. Hepatitis panel revealed hepatitis-C. This is likely chronic. On her last admission patient found to have fatty liver with mild cirrhosis. Patient also found to have liver lesion. Recommendations for the patient follow up with GI as an outpatient to further evaluate and monitor. Patient may benefit with treatment. 4. Patient also with underlying COPD. At discharge she will continue with prednisone 10 mg 1 pill daily for 10 days. Patient will continue with her medications Symbicort and Pro air. Recommendations for the patient follow up with pulmonology as an outpatient to further monitor. 5. Patient has underlying renal insufficiency. Patient likely has chronic renal disease related to her hepatitis. Patient evaluated by Nephrology. No intervention was needed at this time. Renal ultrasound was unremarkable. Recommendation is to recheck his BMP in 1 week. Recommendation is to follow up with nephrology in 1-2 weeks to monitor progress and continue her care. Recommendation on no future nonsteroidal anti- inflammatories. Recommendation on future medications to be renally dosed. 6. Patient has anemia likely of chronic disease. This can be further monitored as an outpatient. 7. Patient has thrombocytopenia likely related to her hepatitis -C. Recommendation to recheck lab-CBC in 1 week to monitor progress. Patient to monitor for bleeding, or bruising. 8. Patient likely has underlying diastolic CHF. Patient will continue with a 1500 cc per day fluid restriction. Patient will continue with Lasix 20 mg daily. Patient is to monitor her weight daily. If her weight increases by more than 5 lb she is to contact her PCP for further recommendation. Further adjustment in medication can be done by her PCP. Diet: Renal Activity: Fall precautions Time spent managing pt's care (in minutes): 55
== END 2017-09-01 14:55 | disposition home or self-care (01) ==
LOC: ER 10:11 → ERHOLD 11:05 → 4TH 12:57
PROVIDERS: ADMIT Family Medicine; ATTEND Family Medicine
DX: R00.1 Bradycardia, unspecified (principal); I10 Essential (primary) hypertension; E78.5 Hyperlipidemia, unspecified; K74.60 Unspecified cirrhosis of liver; K76.0 Fatty (change of) liver, not elsewhere classified; D69.6 Thrombocytopenia, unspecified; B18.2 Chronic viral hepatitis C; I13.0 Hypertensive heart and chronic kidney disease with heart failure and stage 1 through stage 4 chronic kidney disease, or unspecified chronic kidney disease; D63.1 Anemia in chronic kidney disease; G89.29 Other chronic pain; K75.81 Nonalcoholic steatohepatitis (NASH); E66.9 Obesity, unspecified; Z68.37 Body mass index [BMI] 37.0-37.9, adult; N17.9 Acute kidney failure, unspecified; N18.3 Chronic kidney disease, stage 3 (moderate); I50.32 Chronic diastolic (congestive) heart failure; E87.6 Hypokalemia; E66.01 Morbid (severe) obesity due to excess calories
CPT/HCPCS: 36415; 71045; 71046; 76770; 80048; 80053; 80076; 83735 ×2; 83880; 84484; 85025 ×2; 85610; 85730; 93005; 94640; 96374; 97116; 97163; 97530; 99285; G0378 ×2; J2920; J7605 ×3; J7512

== ENCOUNTER 2018-01-23 08:39 | Emergency (ER) | payer OTHER ==
[2018-01-23] MEDS ORDERED: MORPHINE 4 MG/ML SYR ONE (09:04)
--- NOTE | 2018-01-23 10:28 | ER ---
Nurse's Notes [facility] Name: Ofelia Huizar Age: 77 yrs Sex: Female : 1940 Arrival Date: 01/23/2018 Time: 08:41 Bed 7 Private MD: Jose Martin Beckman Diagnosis: 2-part displaced fracture of surgical neck of right humerus Presentation: 01/23 08:50 Presenting complaint: Patient states: pain to R upper arm/shoulder area after slipping ch and falling approx 0745. Transition of care: patient was not received from another setting of care. Onset of symptoms was January 23, 2018 at 07:45. Risk Assessment: Do you want to hurt yourself or someone else? Patient reports no desire to harm self or others. Initial Sepsis Screen: Does the patient meet any 2 criteria? No. Patient's initial sepsis screen is negative. Does the patient have a suspected source of infection? No. Patient's initial sepsis screen is negative. Care prior to arrival: None. 08:50 Method Of Arrival: Wheelchair 08:50 Acuity: BIB 4 Triage Assessment: 08:51 General: Appears distressed, uncomfortable, Behavior is anxious. Pain: Complains of ch pain in right arm. Neuro: No deficits noted. Historical: - Allergies: 09:00 No Known Allergies; aa5 - Home Meds: 08:51 radiation beads in liver 01/18/2018 [Active]; 09:00 Simvastatin Oral [Active]; [place] 5-325 mg Oral tab as needed [Active]; Symbicort aa5 inhalation inhalation [Active]; furosemide 40 mg oral tab 3 times a day as needed [Active]; Albuterol Nebulizer [Active]; Lyrica Oral 100 mg TID [Active]; rosuvastatin 20 mg oral tab [Active]; spironolactone 50 mg Oral tab [Active]; - PMHx: 08:51 Bronchitis; High Cholesterol; Hypertension; liver cancer; 09:00 Pre Diabetes- Diet controlled; Asthma; aa5 - PSHx: 09:00 Cholecystectomy; Appendectomy; Hysterectomy; aa5 - Immunization history:: Adult Immunizations up to date. - Social history:: Smoking status: Patient/guardian denies using tobacco. - Ebola Screening: : Patient negative for fever greater than or equal to 101.5 degrees Fahrenheit, and additional compatible Ebola Virus Disease symptoms Patient denies exposure to infectious person Patient denies travel to an Ebola-affected area in the 21 days before illness onset No symptoms or risks identified at this time. - Family history:: not pertinent. - Hospitalizations: : No recent hospitalization is reported. Screenin:48 Abuse screen: Denies threats or abuse. Denies injuries from another. Nutritional sv screening: No deficits noted. Tuberculosis screening: No symptoms or risk factors identified. Assessment: 08:58 General: Appears uncomfortable, Behavior is calm, cooperative. Pain: Complains of pain aa5 in right shoulder and right upper arm Pain does not radiate. Pain currently is 9 out of 10 on a pain scale. Quality of pain is described as sharp, Pain began SPEECH WRITER, post-fall Aggravated by movement. Neuro: Level of Consciousness is awake, alert, obeys commands, Oriented to person, place, time, situation. Cardiovascular: Heart tones S1 S2 present Rhythm is regular. Respiratory: Airway is patent Respiratory effort is even, unlabored, Respiratory pattern is regular, symmetrical. GI: No signs and/or symptoms were reported involving the gastrointestinal system. : No signs and/or symptoms were reported regarding the genitourinary system. EENT: No signs and/or symptoms were reported regarding the EENT system. Derm: Skin is pink, warm \T\ dry. Musculoskeletal: Range of motion: limited in right shoulder. 09:59 Reassessment: Patient and/or family updated on plan of care and expected duration. Pain aa5 level reassessed. Patient is alert, oriented x 3, equal unlabored respirations, skin warm/dry/pink. Patient states feeling better. Awaiting x-ray results, pt notified of wait time. . Pain: Pain currently is 6 out of 10 on a pain scale. 10:55 Reassessment: Patient is alert, oriented x 3, equal unlabored respirations, skin aa5 warm/dry/pink. Sling applied to right arm . Vital Signs: 08:51 BP 113 / 78; Pulse 92; Resp 20; Temp 98.2; Pulse Ox 99% on R/A; Pain 9/10; ch 09:59 BP 105 / 56; Pulse 73; Resp 18 S; Pulse Ox 95% on R/A; Pain 6/10; aa5 10:50 BP 108 / 58; Pulse 75; Resp 16 S; Pulse Ox 99% on R/A; Pain 5/10; aa5 ED Course: 08:41 Patient arrived in ED. as 08:41 Jose Martin Beckman MD is Private Physician. as 08:42 Jimi Espinoza MD is Attending Physician. rn 08:44 Elena Palafox, BAILEY is Primary Nurse. aa5 08:48 ED physician to see patient. sv 08:48 Patient has correct armband on for positive identification. Bed in low position. Adult sv w/ patient. Door closed. Head of bed elevated. 08:51 Triage completed. ch 08:51 Arm band placed on left wrist. Patient placed in an exam room, on a stretcher, on pulse ch oximetry. 09:58 X-ray completed. Portable x-ray completed in exam room. TOLERATED WITH PAIN. jb2 10:01 XRAY Humerus RIGHT In Process Unspecified. EDMS 10:01 XRAY Elbow RIGHT 3 view In Process Unspecified. EDMS 10:26 Karan Sosa MD is Referral Physician. rn 10:57 No provider procedures requiring assistance completed. Patient did not have IV access sv during this emergency room visit. Sling applied to right arm. Administered Medications: 09:02 Drug: morphine 4 mg Route: IM; Site: right gluteus; sv 09:59 Follow up: Response: No adverse reaction; Pain is decreased aa5 10:40 Drug: [place] 10 mg-325 mg 1 tabs Route: PO; sv 10:56 Follow up: Response: No adverse reaction sv Outcome: 10:27 Discharge ordered by MD. rn 10:55 Discharged to home via wheelchair, with family. aa5 10:55 Condition: stable 10:55 Discharge instructions given to patient, family, Instructed on discharge instructions, follow up and referral plans. Demonstrated understanding of instructions, follow-up care. 10:57 Patient left the ED. sv Signatures: Dispatcher [employer] EDMS Kandis Castillo RN RN ch Verde, Stephanie, RN RN sv Buechter, Jesse jb2 Martinez, Amelia as Nieto, Roman, MD MD rn Calderon, Audri, BAILEY RN aa5
--- NOTE | 2018-01-23 10:28 | EDPHYS ---
Physician Documentation [facility] Name: Ofelia Huizar Age: 77 yrs Sex: Female : 1940 Arrival Date: 01/23/2018 Time: 08:41 Bed 7 Private MD: Jose Martin Beckman ED Physician Jimi Espinoza HPI: 01/23 08:53 This 77 yrs old Female presents to ER via Wheelchair with complaints of rn Shoulder Pain. 08:53 The patient or guardian complains of an injury, pain, that is acute. right shoulder. rn Onset: The symptoms/episode began/occurred just prior to arrival. Modifying factors: the symptoms are alleviated by nothing. The symptoms are aggravated by movement, rotation of arm. Severity of symptoms: At their worst the symptoms were moderate, in the emergency department the symptoms are unchanged. The patient has not experienced similar symptoms in the past. Reports fell getting out of house, usually uses railing, did not today, fell backward, hit right shoulder on ground, no other injury, no head injury or LOC, reports slipped, mechanical fall. . Historical: - Allergies: 09:00 No Known Allergies; aa5 - Home Meds: 08:51 radiation beads in liver 01/18/2018 [Active]; ch 09:00 Simvastatin Oral [Active]; [place] 5-325 mg Oral tab as needed [Active]; Symbicort aa5 inhalation inhalation [Active]; furosemide 40 mg oral tab 3 times a day as needed [Active]; Albuterol Nebulizer [Active]; Lyrica Oral 100 mg TID [Active]; rosuvastatin 20 mg oral tab [Active]; spironolactone 50 mg Oral tab [Active]; - PMHx: 08:51 Bronchitis; High Cholesterol; Hypertension; liver cancer; ch 09:00 Pre Diabetes- Diet controlled; Asthma; aa5 - PSHx: 09:00 Cholecystectomy; Appendectomy; Hysterectomy; aa5 - Immunization history:: Adult Immunizations up to date. - Social history:: Smoking status: Patient/guardian denies using tobacco. - Ebola Screening: : Patient negative for fever greater than or equal to 101.5 degrees Fahrenheit, and additional compatible Ebola Virus Disease symptoms Patient denies exposure to infectious person Patient denies travel to an Ebola-affected area in the 21 days before illness onset No symptoms or risks identified at this time. - Family history:: not pertinent. - Hospitalizations: : No recent hospitalization is reported. ROS: 08:53 Constitutional: Negative for fever, chills, and weight loss, Eyes: Negative for injury, rn pain, redness, and discharge, ENT: Negative for injury, pain, and discharge, Neck: Negative for injury, pain, and swelling, Cardiovascular: Negative for chest pain, palpitations, and edema, Respiratory: Negative for shortness of breath, cough, wheezing, and pleuritic chest pain, Abdomen/GI: Negative for abdominal pain, nausea, vomiting, diarrhea, and constipation, Back: Negative for injury and pain, MS/Extremity: + right shoulder injury and pain Skin: Negative for injury, rash, and discoloration, Neuro: Negative for headache, weakness, numbness, tingling, and seizure. Exam: 08:53 Constitutional: This is a well developed, well nourished patient who is awake, alert, rn appears uncomfortable Head/Face: Normocephalic, atraumatic. Eyes: Pupils equal round and reactive to light, extra-ocular motions intact. Lids and lashes normal. Conjunctiva and sclera are non-icteric and not injected. Cornea within normal limits. Periorbital areas with no swelling, redness, or edema. Neck: Trachea midline, no thyromegaly or masses palpated, and no cervical lymphadenopathy. Supple, full range of motion without nuchal rigidity, or vertebral point tenderness. No Meningismus. Cardiovascular: Regular rate and rhythm. No pulse deficits. Abdomen/GI: soft, non-tender MS/ Extremity: Pulses equal, no cyanosis. + right humeral tenderness, no swelling, no deformity, held in passive flexion with painful ROM. No tenderness right hand/wrist/forearm. Neuro: Awake and alert, GCS 15, oriented to person, place, time, and situation. Cranial nerves II-XII grossly intact. Motor strength 5/5 in all extremities. Sensory grossly intact. Vital Signs: 08:51 BP 113 / 78; Pulse 92; Resp 20; Temp 98.2; Pulse Ox 99% on R/A; Pain 9/10; ch 09:59 BP 105 / 56; Pulse 73; Resp 18 S; Pulse Ox 95% on R/A; Pain 6/10; aa5 10:50 BP 108 / 58; Pulse 75; Resp 16 S; Pulse Ox 99% on R/A; Pain 5/10; aa5 MDM: 08:42 Patient medically screened. rn 10:25 Differential diagnosis: humeral head fracture, DJD. rn 10:25 Data reviewed: vital signs, nurses notes, radiologic studies, plain films, and as a rn result, I will discharge patient. Counseling: I had a detailed discussion with the patient and/or guardian regarding: the historical points, exam findings, and any diagnostic results supporting the discharge/admit diagnosis, radiology results, the need for outpatient follow up, to return to the emergency department if symptoms worsen or persist or if there are any questions or concerns that arise at home. Response to treatment: the patient's symptoms have markedly improved after treatment, and as a result, I will discharge patient. Special discussion: I discussed with the patient/guardian in detail that at this point there is no indication for admission to the hospital. It is understood, however, that if the symptoms persist or worsen the patient needs to return immediately for re-evaluation. Based on the history and exam findings, there is no indication for further emergent testing or inpatient evaluation. I discussed with the patient/guardian the need to see the orthopedic surgeon for further evaluation of the symptoms. 10:27 ED course: Much more comfortable, offered pain meds but patient's grandson declines, rn states has norco at home and has problem with taking too much medication so her daughter is controlling how much she gets. . 10:27 ED course: Return precautions given and signs of compartment syndrome or NV rn complications explained and understood. . 01/23 08:51 Order name: XRAY Humerus RIGHT rn 01/23 08:51 Order name: XRAY Elbow RIGHT 3 view rn 01/23 10:02 Order name: Sling; Complete Time: 10:56 rn Administered Medications: 09:02 Drug: morphine 4 mg Route: IM; Site: right gluteus; sv 09:59 Follow up: Response: No adverse reaction; Pain is decreased aa5 10:40 Drug: [place] 10 mg-325 mg 1 tabs Route: PO; sv 10:56 Follow up: Response: No adverse reaction sv Disposition: 01/23/18 10:27 Discharged to Home. Impression: 2-part displaced fracture of surgical neck of right humerus. - Condition is Stable. - Discharge Instructions: Humerus Fracture Treated With Immobilization. - Medication Reconciliation Form, Thank You Letter, Antibiotic Education, Prescription Opioid Use form. - Follow up: Karan Sosa MD; When: 2 - 3 days; Reason: Recheck today's complaints, Continuance of care, Re-evaluation by your physician. - Problem is new. - Symptoms have improved. Signatures: Dispatcher [employer] EDMS Kandis Castillo RN BAILEY Sheba Coles RN RN sv Nieto, Roman, MD MD rn Calderon, Audri, RN RN aa5 Corrections: (The following items were deleted from the chart) 10:57 10:27 01/23/2018 10:27 Discharged to Home. Impression: 2-part displaced fracture of sv surgical neck of right humerus. Condition is Stable. Forms are Medication Reconciliation Form, Thank You Letter, Antibiotic Education, Prescription Opioid Use. Follow up: Karan Sosa; When: 2 - 3 days; Reason: Recheck today's complaints, Continuance of care, Re-evaluation by your physician. Problem is new. Symptoms have improved. rn
[2018-01-23] MEDS ORDERED: HYDROCODONE/APAP 10/325 TAB ONE (10:45)
--- NOTE | 2018-01-23 11:05 | RAD REPORT ---
EXAM DESCRIPTION: RAD - Elbow Right 3 View - 01/23/2018 10:01 am CLINICAL HISTORY: PAIN Fall, trauma. COMPARISON: None FINDINGS: Right humerus and right elbow - multiple projections are submitted. Multipart fracture the proximal right humerus is noted. Fracture fragments are moderately displaced. No dislocation evident. No elbow fracture is identified.
--- NOTE | 2018-01-23 11:36 | RAD REPORT ---
EXAM DESCRIPTION: RAD - Humerus Right - 01/23/2018 10:01 am CLINICAL HISTORY: PAIN Fall, trauma. COMPARISON: None FINDINGS: Right humerus and right elbow - multiple projections are submitted. Multi-part fracture the proximal right humerus is noted. Fracture fragments are moderately displaced. No dislocation evident. No elbow fracture is identified.
[2018-01-23 15:26] VITALS: BP 105/56; TEMP 98.2; O2SAT 95
== END 2018-01-23 10:57 | disposition home or self-care (01) ==
LOC: ER 08:39
DX: S42.221A 2-part displaced fracture of surgical neck of right humerus, initial encounter for closed fracture (principal); W01.0XXA Fall on same level from slipping, tripping and stumbling without subsequent striking against object, initial encounter; Y93.01 Activity, walking, marching and hiking; Y92.009 Unspecified place in unspecified non-institutional (private) residence as the place of occurrence of the external cause; Z85.05 Personal history of malignant neoplasm of liver; E78.00 Pure hypercholesterolemia, unspecified; I10 Essential (primary) hypertension; R73.03 Prediabetes
CPT/HCPCS: 96372; 99284

== ENCOUNTER 2018-01-27 10:57 | Emergency (ER) | payer OTHER ==
[2018-01-27] MEDS ORDERED: MORPHINE 4 MG/ML SYR ONE (12:03)
[2018-01-27] MEDS ORDERED: ONDANSETRON 4 MG (ODT) TAB ONE (12:03)
--- NOTE | 2018-01-27 12:43 | EDPHYS ---
Physician Documentation [facility] Name: Ofelia Huizar Age: 77 yrs Sex: Female : 1940 Arrival Date: 01/27/2018 Time: 10:59 Bed 8 Private MD: ED Physician Pantera Caicedo HPI: 01/27 12:48 This 77 yrs old Female presents to ER via Wheelchair with complaints of Arm jr8 Injury. 12:48 Patient was seen on the 23 of January for fall injury in which she ended up jr8 fracturing the humeral head on the right side. Stated that she was splinted with sling at that time. Came back today for swelling and increased pain. Feels that the sling is not supporting enough . Historical: - Allergies: 11:04 No Known Allergies; aj1 - Home Meds: 11:04 Albuterol Inhl [Active]; carvedilol Oral [Active]; furosemide 40 mg Oral tab 3 times a aj1 day as needed [Active]; Lyrica Oral 100 mg TID [Active]; [place] 5-325 mg Oral tab as needed [Active]; radiation beads in liver 01/18/2018 [Active]; rosuvastatin 20 mg Oral tab [Active]; Simvastatin Oral [Active]; spironolactone 50 mg Oral tab [Active]; Symbicort inhalation [Active]; - PMHx: 11:04 Asthma; Bronchitis; High Cholesterol; Hypertension; liver cancer; Pre Diabetes- Diet aj1 controlled; - Immunization history:: Flu vaccine is not up to date. - Social history:: Smoking status: Patient/guardian denies using tobacco. - Ebola Screening: : Patient denies travel to an Ebola-affected area in the 21 days before illness onset. ROS: 12:48 Eyes: Negative for injury, pain, redness, and discharge, ENT: Negative for injury, jr8 pain, and discharge, Neck: Negative for injury, pain, and swelling, Cardiovascular: Negative for chest pain, palpitations, and edema, Respiratory: Negative for shortness of breath, cough, wheezing, and pleuritic chest pain, Abdomen/GI: Negative for abdominal pain, nausea, vomiting, diarrhea, and constipation, Back: Negative for injury and pain, Skin: Negative for injury, rash, and discoloration, Neuro: Negative for headache, weakness, numbness, tingling, and seizure. 12:48 MS/extremity: Positive for decreased range of motion, ecchymosis, pain, swelling, tenderness, of the right arm. Exam: 12:48 Eyes: Pupils equal round and reactive to light, extra-ocular motions intact. Lids and jr8 lashes normal. Conjunctiva and sclera are non-icteric and not injected. Cornea within normal limits. Periorbital areas with no swelling, redness, or edema. ENT: Nares patent. No nasal discharge, no septal abnormalities noted. Tympanic membranes are normal and external auditory canals are clear. Oropharynx with no redness, swelling, or masses, exudates, or evidence of obstruction, uvula midline. Mucous membranes moist. Neck: Trachea midline, no thyromegaly or masses palpated, and no cervical lymphadenopathy. Supple, full range of motion without nuchal rigidity, or vertebral point tenderness. No Meningismus. Cardiovascular: Regular rate and rhythm with a normal S1 and S2. No gallops, murmurs, or rubs. Normal PMI, no JVD. No pulse deficits. Respiratory: Lungs have equal breath sounds bilaterally, clear to auscultation and percussion. No rales, rhonchi or wheezes noted. No increased work of breathing, no retractions or nasal flaring. Abdomen/GI: Soft, non-tender, with normal bowel sounds. No distension or tympany. No guarding or rebound. No evidence of tenderness throughout. Back: No spinal tenderness. No costovertebral tenderness. Full range of motion. Skin: Warm, dry with normal turgor. Normal color with no rashes, no lesions, and no evidence of cellulitis. Neuro: Awake and alert, GCS 15, oriented to person, place, time, and situation. Cranial nerves II-XII grossly intact. Motor strength 5/5 in all extremities. Sensory grossly intact. Cerebellar exam normal. Normal gait. 12:48 Chest/axilla: Inspection: ecchymosis, that is mild, of the anterior aspect of right upper chest 12:48 Musculoskeletal/extremity: Extremities: grossly normal except: noted in the right arm: decreased ROM, ecchymosis, swelling, tenderness, ROM: limited active range of motion, in the right arm, limited passive range of motion, in the right arm, limited active range of motion due to pain, in the right arm, limited passive range of motion due to pain, in the right arm, Circulation is intact in all extremities. Pulses: noted to be 2+ in the right radial artery and left radial artery, Perfusion: the patient is pink, warm, noted to have brisk capillary refill, Perfusion: the extremity is pink, warm, with brisk capillary refill, Sensation intact. Vital Signs: 11:04 BP 125 / 38; Pulse 84; Resp 20; Temp 97.5; Pulse Ox 96% on R/A; Weight 88.45 kg (R); aj1 Height 5 ft. 0 in. (152.40 cm) (R); Pain 9/10; 11:04 Body Mass Index 38.08 (88.45 kg, 152.40 cm) aj1 Procedures: 12:48 Splinting: Splint applied to right arm using Orthoglass splint, applied by myself. jr8 tech. Examined by me, post splint application: neurovascular intact, 2+ distal pulses palpable, brisk capillary refill noted, Patient tolerated well. MDM: 11:07 Patient medically screened. jr8 12:41 Data reviewed: vital signs, nurses notes, old medical records, humeral head fracture. jr8 Data interpreted: Pulse oximetry: on room air is 96 %. Interpretation: normal. Counseling: I had a detailed discussion with the patient and/or guardian regarding: the historical points, exam findings, and any diagnostic results supporting the discharge/admit diagnosis, radiology results, the need for outpatient follow up, a orthopedic surgeon, to return to the emergency department if symptoms worsen or persist or if there are any questions or concerns that arise at home. Response to treatment: the patient's symptoms have markedly improved after treatment. 12:48 ED course: Patient feeling much better. More support with less pain . jr8 Administered Medications: 11:59 Drug: morphine 4 mg Route: IM; Site: right deltoid; hb 12:59 Follow up: Response: No adverse reaction hb 12:00 Drug: Zofran 4 mg Route: PO; hb 12:59 Follow up: Response: No adverse reaction hb Disposition: 15:23 Co-signature as Attending Physician, Pantera Caicedo MD I agree with the assessment and kdr plan of care. Disposition: 01/27/18 12:43 Discharged to Home. Impression: Humeral Head fracture. - Condition is Stable. - Discharge Instructions: Humerus Fracture Treated With Immobilization, Humerus Fracture Treated With ORIF. - Prescriptions for Tramadol 50 mg Oral Tablet - take 1 tablet by ORAL route every 8 hours as needed; 20 tablet. - Medication Reconciliation Form, Thank You Letter, Antibiotic Education, Prescription Opioid Use form. - Follow up: Eliezer Gayle MD; When: 2 - 3 days; Reason: Recheck today's complaints, Continuance of care, Re-evaluation by your physician. - Problem is new. - Symptoms have improved. Signatures: Martha Bauman RN RN aj1 Pantera Caicedo MD MD [facility] Steve Corral PA PA jr8 Jasmina Escamilla RN RN hb Corrections: (The following items were deleted from the chart) 13:00 12:43 01/27/2018 12:43 Discharged to Home. Impression: Humeral Head fracture. Condition hb is Stable. Forms are Medication Reconciliation Form, Thank You Letter, Antibiotic Education, Prescription Opioid Use. Follow up: Eliezer Gayle; When: 2 - 3 days; Reason: Recheck today's complaints, Continuance of care, Re-evaluation by your physician. Problem is new. Symptoms have improved. jr8
--- NOTE | 2018-01-27 12:43 | ER ---
Nurse's Notes [facility] Name: Ofelia Huizar Age: 77 yrs Sex: Female : 1940 Arrival Date: 01/27/2018 Time: 10:59 Bed 8 Private MD: Diagnosis: Humeral Head fracture Presentation: 01/27 11:01 Presenting complaint: Child states: She was seen in this emergency room on January 23 aj and diagnosed with a displaced fracture of the right humerus. They are suppose to follow up with Dr. Gayle on the , but this morning when she woke up and the top of her right hand and her wrist was swollen. Transition of care: patient was not received from another setting of care. Onset of symptoms was January 23, 2018. Risk Assessment: Do you want to hurt yourself or someone else? Patient reports no desire to harm self or others. Initial Sepsis Screen: Does the patient meet any 2 criteria? No. Patient's initial sepsis screen is negative. Does the patient have a suspected source of infection? No. Patient's initial sepsis screen is negative. Care prior to arrival: None. 11:01 Method Of Arrival: Wheelchair aj1 11:01 Acuity: BIB 4 aj1 Triage Assessment: 11:04 General: Appears in no apparent distress. comfortable, Behavior is calm, cooperative, aj1 appropriate for age. Pain: Complains of pain in right hand Pain currently is 9 out of 10 on a pain scale. Neuro: Level of Consciousness is awake, alert, obeys commands. Cardiovascular: Patient's skin is warm and dry. Respiratory: Airway is patent Respiratory effort is even, unlabored, Respiratory pattern is regular, symmetrical. Historical: - Allergies: 11:04 No Known Allergies; aj1 - Home Meds: 11:04 Albuterol Inhl [Active]; carvedilol Oral [Active]; furosemide 40 mg Oral tab 3 times a aj1 day as needed [Active]; Lyrica Oral 100 mg TID [Active]; [place] 5-325 mg Oral tab as needed [Active]; radiation beads in liver 01/18/2018 [Active]; rosuvastatin 20 mg Oral tab [Active]; Simvastatin Oral [Active]; spironolactone 50 mg Oral tab [Active]; Symbicort inhalation [Active]; - PMHx: 11:04 Asthma; Bronchitis; High Cholesterol; Hypertension; liver cancer; Pre Diabetes- Diet aj1 controlled; - Immunization history:: Flu vaccine is not up to date. - Social history:: Smoking status: Patient/guardian denies using tobacco. - Ebola Screening: : Patient denies travel to an Ebola-affected area in the 21 days before illness onset. Screenin:15 Abuse screen: Denies threats or abuse. Denies injuries from another. Nutritional hb screening: No deficits noted. Tuberculosis screening: No symptoms or risk factors identified. Fall Risk None identified. Assessment: 11:15 General: Appears in no apparent distress. uncomfortable, Behavior is calm, cooperative. hb Pain: Pain currently is 9 out of 10 on a pain scale. Neuro: Level of Consciousness is awake, alert, obeys commands, Oriented to person, place, time, situation. Cardiovascular: Capillary refill < 3 seconds Patient's skin is warm and dry. Respiratory: Airway is patent Respiratory effort is even, unlabored, Respiratory pattern is regular, symmetrical, Breath sounds are clear bilaterally. GI: No signs and/or symptoms were reported involving the gastrointestinal system. : No signs and/or symptoms were reported regarding the genitourinary system. EENT: No signs and/or symptoms were reported regarding the EENT system. Derm: Skin is intact, is healthy with good turgor, Skin is pink, warm \T\ dry. Musculoskeletal: Reports pain in right hand. 12:00 Reassessment: Patient appears in no apparent distress at this time. Patient and/or hb family updated on plan of care and expected duration. Pain level reassessed. Patient is alert, oriented x 3, equal unlabored respirations, skin warm/dry/pink. 12:25 Reassessment: MANDY Wilson at bedside for splint applicatin. hb Vital Signs: 11:04 BP 125 / 38; Pulse 84; Resp 20; Temp 97.5; Pulse Ox 96% on R/A; Weight 88.45 kg (R); aj1 Height 5 ft. 0 in. (152.40 cm) (R); Pain 9/10; 11:04 Body Mass Index 38.08 (88.45 kg, 152.40 cm) aj1 ED Course: 10:59 Patient arrived in ED. tw3 11:03 Triage completed. aj1 11:04 Arm band placed on Patient placed in an exam room. aj1 11:07 Steve Corral PA is PHCP. jr8 11:07 Pantera Caicedo MD is Attending Physician. jr8 11:15 Patient has correct armband on for positive identification. Bed in low position. Call hb light in reach. Side rails up X 1. 11:25 PHCP role handed off by Steve Corral PA snw 11:25 Mehnaz Scales FNP-C is PHCP. snw 11:25 Steve Corral PA is PHCP. jr8 11:55 Jasmina Escamilla, BAILEY is Primary Nurse. hb 12:42 Eliezer Gayle MD is Referral Physician. jr8 12:43 Orthoglass splint: Coaptation splint applied on right arm. Shoulder immobilizer applied em1 on right shoulder. 12:59 No provider procedures requiring assistance completed. Patient did not have IV access hb during this emergency room visit. Administered Medications: 11:59 Drug: morphine 4 mg Route: IM; Site: right deltoid; hb 12:59 Follow up: Response: No adverse reaction hb 12:00 Drug: Zofran 4 mg Route: PO; hb 12:59 Follow up: Response: No adverse reaction hb Outcome: 12:43 Discharge ordered by . jr8 13:00 Discharged to home via wheelchair, with family. hb 13:00 Condition: stable 13:00 Discharge instructions given to patient, family, Instructed on discharge instructions, follow up and referral plans. medication usage, Demonstrated understanding of instructions, follow-up care, medications, splint care, Prescriptions given X 1. 13:00 Patient left the ED. hb Signatures: Martha Bauman RN RN aj1 Mehnaz Scales FNP-C FNP-Francisco Skinner em1 Steve Corral PA PA jr8 Jasmina Escamilla RN RN hb Wade, Tia tw3
[2018-01-27 13:03] VITALS: BP 125/38; TEMP 97.5; O2SAT 96
== END 2018-01-27 13:00 | disposition home or self-care (01) ==
LOC: ER 10:57
PROC: 2W3CX1Z Immobilization of Right Lower Arm using Splint (ICD-10-PCS; principal; 2018-01-27)
DX: S42.301A Unspecified fracture of shaft of humerus, right arm, initial encounter for closed fracture (principal); W19.XXXA Unspecified fall, initial encounter; Y93.9 Activity, unspecified; Y92.9 Unspecified place or not applicable; I10 Essential (primary) hypertension; R73.03 Prediabetes; J45.909 Unspecified asthma, uncomplicated; E78.00 Pure hypercholesterolemia, unspecified
CPT/HCPCS: 96372; 99283

== ENCOUNTER 2018-01-28 14:13 | Emergency (ER) | payer OTHER ==
[2018-01-28] MEDS ORDERED: MORPHINE 4 MG/ML SYR ONE (17:15)
[2018-01-28] MEDS ORDERED: ONDANSETRON 4 MG (ODT) TAB ONE (17:16)
--- NOTE | 2018-01-28 18:26 | RAD REPORT ---
EXAM DESCRIPTION: US - Extremity Venous Uni Ltd - 01/28/2018 6:09 pm CLINICAL HISTORY: Right arm pain and swelling COMPARISON: None. TECHNIQUE: Real-time sonographic evaluation of the right upper extremity deep venous systems was per formed. FINDINGS: Normal compressibility, flow augmentation, phasic flow and spontaneous flow are identified in the right upper extremity axial, brachial, radial and ulnar deep veins. Superficial cephalic and basilic veins also clear. Internal jugular and subclavian veins are normal as well. IMPRESSION: No DVT in the right upper extremity.
--- NOTE | 2018-01-28 18:31 | EDPHYS ---
Physician Documentation [facility] Name: Ofelia Huizar Age: 77 yrs Sex: Female : 1940 Arrival Date: 01/28/2018 Time: 14:17 Bed 30 Private MD: Jose Martin Beckman ED Physician Pantera Caicedo HPI: 01/28 17:03 This 77 yrs old Female presents to ER via Wheelchair with complaints of Hand jr8 Swelling. 17:03 Patient seen the yesterday for swelling to arm after breaking her humeral head. She was jr8 re splinted and sent home after feeling better. Came back today for worsening of swelling . Historical: - Allergies: 14:57 No Known Allergies; rv - Home Meds: 14:57 Albuterol Inhl [Active]; carvedilol Oral [Active]; furosemide 40 mg Oral tab 3 times a rv day as needed [Active]; Lyrica Oral 100 mg TID [Active]; [place] 5-325 mg Oral tab as needed [Active]; radiation beads in liver 01/18/2018 [Active]; rosuvastatin 20 mg Oral tab [Active]; Simvastatin Oral [Active]; spironolactone 50 mg Oral tab [Active]; Symbicort inhalation [Active]; - PMHx: 14:57 Asthma; Bronchitis; High Cholesterol; Hypertension; liver cancer; Pre Diabetes- Diet rv controlled; - PSHx: 14:57 Unable to obtain; rv - Immunization history:: Adult Immunizations up to date. - Social history:: Smoking status: unknown. - Ebola Screening: : Patient negative for fever greater than or equal to 101.5 degrees Fahrenheit, and additional compatible Ebola Virus Disease symptoms Patient denies exposure to infectious person Patient denies travel to an Ebola-affected area in the 21 days before illness onset. ROS: 17:05 Eyes: Negative for injury, pain, redness, and discharge, ENT: Negative for injury, jr8 pain, and discharge, Neck: Negative for injury, pain, and swelling, Cardiovascular: Negative for chest pain, palpitations, and edema, Respiratory: Negative for shortness of breath, cough, wheezing, and pleuritic chest pain, Abdomen/GI: Negative for abdominal pain, nausea, vomiting, diarrhea, and constipation, Back: Negative for injury and pain, Skin: Negative for injury, rash, and discoloration, Neuro: Negative for headache, weakness, numbness, tingling, and seizure. 17:05 MS/extremity: Positive for decreased range of motion, ecchymosis, pain, swelling, tenderness, of the right arm. Exam: 17:05 Cardiovascular: Regular rate and rhythm with a normal S1 and S2. No gallops, murmurs, jr8 or rubs. Normal PMI, no JVD. No pulse deficits. Respiratory: Lungs have equal breath sounds bilaterally, clear to auscultation and percussion. No rales, rhonchi or wheezes noted. No increased work of breathing, no retractions or nasal flaring. Skin: Warm, dry with normal turgor. Normal color with no rashes, no lesions, and no evidence of cellulitis. Neuro: Awake and alert, GCS 15, oriented to person, place, time, and situation. Cranial nerves II-XII grossly intact. Motor strength 5/5 in all extremities. Sensory grossly intact. Cerebellar exam normal. Normal gait. 17:05 Musculoskeletal/extremity: Patient with bruising from right anterior chest wall down to right hand. Moderate amount of swelling/edema noted. Pulses 2 + bilaterally in the radial pulses with normal hand motion and with normal sensation. Mild increase in warmth to affected extremity when compared to the unaffected arm . Vital Signs: 14:45 BP 117 / 53; Pulse 78; Resp 18; Temp 98.4(O); Pulse Ox 99% on R/A; jp3 15:44 BP 130 / 59; Pulse 74; Pulse Ox 100% on R/A; rv 16:20 BP 131 / 56; Pulse 75; Pulse Ox 100% on R/A; rv 17:37 BP 119 / 44; Pulse 77; Pulse Ox 98% on R/A; rv 18:54 BP 109 / 62; Pulse 76; Pulse Ox 99% on R/A; rv MDM: 14:44 Patient medically screened. jr8 18:30 Data reviewed: vital signs, nurses notes, radiologic studies, ultrasound, and as a jr8 result, I will discharge patient. Data interpreted: Pulse oximetry: on room air is 98 %. Interpretation: normal. Counseling: I had a detailed discussion with the patient and/or guardian regarding: the historical points, exam findings, and any diagnostic results supporting the discharge/admit diagnosis, radiology results, the need for outpatient follow up, a orthopedic surgeon, to return to the emergency department if symptoms worsen or persist or if there are any questions or concerns that arise at home. 01/28 15:21 Order name: US Extremity Venous Unilateral Ltd; Complete Time: 18:30 jr8 Administered Medications: 17:16 Drug: Zofran 4 mg Route: PO; rv 18:54 Follow up: Response: No adverse reaction rv 17:17 Drug: morphine 4 mg Route: IM; Site: left deltoid; rv 18:54 Follow up: Response: No adverse reaction rv Disposition: 01/28/18 18:30 Discharged to Home. Impression: Pain in right arm. - Condition is Stable. - Discharge Instructions: Humerus Fracture Treated With Immobilization. - Medication Reconciliation Form, Thank You Letter, Antibiotic Education, Prescription Opioid Use form. - Follow up: Eliezer Gayle MD; When: 2 - 3 days; Reason: Recheck today's complaints, Continuance of care, Re-evaluation by your physician. - Problem is new. - Symptoms have improved. Signatures: Dispatcher [employer] EDMS Steve Corral PA PA jr8 Issa Trevino RN RN rv Corrections: (The following items were deleted from the chart) 18:56 18:30 01/28/2018 18:30 Discharged to Home. Impression: Pain in right arm. Condition is rv Stable. Forms are Medication Reconciliation Form, Thank You Letter, Antibiotic Education, Prescription Opioid Use. Follow up: Eliezer Gayle; When: 2 - 3 days; Reason: Recheck today's complaints, Continuance of care, Re-evaluation by your physician. Problem is new. Symptoms have improved. jr8
--- NOTE | 2018-01-28 18:31 | ER ---
Nurse's Notes [facility] Name: Ofelia Huizar Age: 77 yrs Sex: Female : 1940 Arrival Date: 01/28/2018 Time: 14:17 Bed 30 Private MD: Jose Martin Beckman Diagnosis: Pain in right arm Presentation: 01/28 14:53 Presenting complaint: Patient states: I FELL LAST WEEK. I WAS HERE AND THEY PUT FIBER rv GLASS ON MY SHOULDER. I WILL SEE AN ORTHO THIS MONDAY BUT MY HAND STARTED SWELL.". Transition of care: patient was not received from another setting of care. Onset of symptoms was January 26, 2018 at 08:00. Risk Assessment: Do you want to hurt yourself or someone else? Patient reports no desire to harm self or others. Initial Sepsis Screen: Does the patient meet any 2 criteria? No. Patient's initial sepsis screen is negative. Does the patient have a suspected source of infection? No. Patient's initial sepsis screen is negative. Care prior to arrival: None. 14:53 Method Of Arrival: Wheelchair rv 14:53 Acuity: BIB 3 rv Historical: - Allergies: 14:57 No Known Allergies; rv - Home Meds: 14:57 Albuterol Inhl [Active]; carvedilol Oral [Active]; furosemide 40 mg Oral tab 3 times a rv day as needed [Active]; Lyrica Oral 100 mg TID [Active]; [place] 5-325 mg Oral tab as needed [Active]; radiation beads in liver 01/18/2018 [Active]; rosuvastatin 20 mg Oral tab [Active]; Simvastatin Oral [Active]; spironolactone 50 mg Oral tab [Active]; Symbicort inhalation [Active]; - PMHx: 14:57 Asthma; Bronchitis; High Cholesterol; Hypertension; liver cancer; Pre Diabetes- Diet rv controlled; - PSHx: 14:57 Unable to obtain; rv - Immunization history:: Adult Immunizations up to date. - Social history:: Smoking status: unknown. - Ebola Screening: : Patient negative for fever greater than or equal to 101.5 degrees Fahrenheit, and additional compatible Ebola Virus Disease symptoms Patient denies exposure to infectious person Patient denies travel to an Ebola-affected area in the 21 days before illness onset. Screenin:58 Abuse screen: Denies threats or abuse. Denies injuries from another. Nutritional rv screening: No deficits noted. Tuberculosis screening: No symptoms or risk factors identified. Fall Risk None identified. Assessment: 14:57 General: Appears in no apparent distress. comfortable, Behavior is calm, cooperative. rv Pain: Complains of pain in RIGHT SHOULDER Pain currently is 9 out of 10 on a pain scale. Neuro: Level of Consciousness is awake, alert, obeys commands, Oriented to person, place, time, situation. Cardiovascular: Capillary refill < 3 seconds. Respiratory: Airway is patent. GI: No signs and/or symptoms were reported involving the gastrointestinal system. : No signs and/or symptoms were reported regarding the genitourinary system. EENT: No signs and/or symptoms were reported regarding the EENT system. Derm: Skin is intact. 15:44 Reassessment: Patient appears in no apparent distress at this time. Patient and/or rv family updated on plan of care and expected duration. Pain level reassessed. Patient is alert, oriented x 3, equal unlabored respirations, skin warm/dry/pink. awaiting Ultrasound. 16:21 Reassessment: Patient appears in no apparent distress at this time. Patient and/or rv family updated on plan of care and expected duration. Pain level reassessed. Patient is alert, oriented x 3, equal unlabored respirations, skin warm/dry/pink. 17:36 Reassessment: Patient appears in no apparent distress at this time. Patient and/or rv family updated on plan of care and expected duration. Pain level reassessed. Patient is alert, oriented x 3, equal unlabored respirations, skin warm/dry/pink. 17:36 Reassessment: patient was taken to ultrasound. rv Vital Signs: 14:45 BP 117 / 53; Pulse 78; Resp 18; Temp 98.4(O); Pulse Ox 99% on R/A; jp3 15:44 BP 130 / 59; Pulse 74; Pulse Ox 100% on R/A; rv 16:20 BP 131 / 56; Pulse 75; Pulse Ox 100% on R/A; rv 17:37 BP 119 / 44; Pulse 77; Pulse Ox 98% on R/A; rv 18:54 BP 109 / 62; Pulse 76; Pulse Ox 99% on R/A; rv ED Course: 14:17 Patient arrived in ED. mr 14:18 Jose Martin Beckman MD is Private Physician. mr 14:20 Mehnaz Scales FNP-C is PHCP. snw 14:20 Pantera Caicedo MD is Attending Physician. snw 14:43 PHCP role handed off by Mehnaz Scales FNP-C jr8 14:43 Steve Corral PA is PHCP. jr8 14:50 Bed in low position. Call light in reach. Side rails up X 1. Side rails up X2. Warm jp3 blanket given. Pillow given. Pulse ox on. NIBP on. 14:55 Triage completed. rv 14:58 Arm band placed on left wrist. rv 16:20 Awaiting: ultrasound. rv 18:06 Patient moved back from ultrasound. kristan 18:09 US Extremity Venous Unilateral Ltd In Process Unspecified. EDMS 18:30 Eliezer Gayle MD is Referral Physician. jr8 18:55 Assist provider with fracture care Immobilized with Patient tolerated well. Patient did rv not have IV access during this emergency room visit. Administered Medications: 17:16 Drug: Zofran 4 mg Route: PO; rv 18:54 Follow up: Response: No adverse reaction rv 17:17 Drug: morphine 4 mg Route: IM; Site: left deltoid; rv 18:54 Follow up: Response: No adverse reaction rv Outcome: 18:30 Discharge ordered by . jr8 18:55 Discharged to home via wheelchair. rv 18:55 Condition: good 18:55 Discharge instructions given to patient, family, Instructed on discharge instructions, follow up and referral plans. medication usage, Demonstrated understanding of instructions, follow-up care, medications, Prescriptions given X 1. 18:56 Patient left the ED. rv Signatures: Dispatcher [employer] EDMS Mehnaz Scales FNP-C FNP-Csnw Nicolasa Marrufo mr Steve Corral PA PA jr8 Ishan Ambriz jd, Ronaldo, BAILEY RN rv Jhonny Billy jp3
[2018-01-28 19:00] VITALS: TEMP 98.4
[2018-01-28 19:04] VITALS: BP 109/62; O2SAT 99
== END 2018-01-28 18:56 | disposition home or self-care (01) ==
LOC: ER 14:13
DX: M79.601 Pain in right arm (principal); I10 Essential (primary) hypertension; E78.00 Pure hypercholesterolemia, unspecified; R73.03 Prediabetes; Z85.05 Personal history of malignant neoplasm of liver
CPT/HCPCS: 93971; 96372; 99285

== ENCOUNTER 2018-06-11 17:19 | Inpatient (IN) | payer OTHER ==
--- OUTSIDE RECORDS SUMMARY | 2018-06-11 17:21 | XMS REPORT ---
:1940 Author Organization [employer] Care Team Providers Name Role Phone Eliezer Gayle Provider Role Unavailable Allergies, Adverse Reactions, Alerts Substance Reaction Event Type N.K.D.A. Info Not Available Non Drug Allergy Problems Problem Type Condition Code Onset Dates Condition Status Assessment Other closed displaced fracture of S42.291D Active proximal end of right humerus with routine healing, subsequent encounter Problem Closed 3-part fracture of proximal S42.292D Active end of left humerus with routine healing Problem Displaced fracture of proximal end S42.209G Active of humerus with delayed healing Problem Other closed displaced fracture of S42.291D Active proximal end of right humerus with routine healing, subsequent encounter Assessment Pain, joint, shoulder, right M25.511 Active Problem Pain, joint, shoulder, right M25.511 Active Problem Other closed displaced fracture of S42.292A Active proximal end of left humerus, initial encounter Medications Medication Code Code Instructions Start End Status Dosage System Date Date Sucralfate [facility] 93903074166 1 GM Oral Active not defined Ciprofloxacin HCl [facility] 99036442702 500 MG Oral Active not defined Symbicort ND 72041636101 160-4.5 MCG/ACT Active not Inhalation defined Tylenol ND 0 Oral Nov , Active 1 tab 2018 Pantoprazole [facility] 65853207302 40 MG Oral Active not Sodium defined Albuterol Sulfate ND 78199373440 (2.5 MG/3ML) Active not 0.083% defined Inhalation Rosuvastatin ND 52645138097 20 MG Oral Active not Calcium defined Results No Known Results Summary Purpose [employer] Submission
--- OUTSIDE RECORDS SUMMARY | 2018-06-11 17:22 | XMS REPORT ---
:1940 Author Organization [employer] Care Team Providers Name Role Phone Eliezer Gayle Provider Role Unavailable Allergies, Adverse Reactions, Alerts Substance Reaction Event Type N.K.D.A. Info Not Available Non Drug Allergy Problems Problem Type Condition Code Onset Dates Condition Status Assessment Pain, joint, shoulder, right M25.511 Active Assessment Other displaced fracture of upper S42.291G Active end of right humerus, subsequent encounter for fracture with delayed healing Problem Other closed displaced fracture of S42.291D Active proximal end of right humerus with routine healing, subsequent encounter Problem Closed 3-part fracture of proximal S42.292D Active end of left humerus with routine healing Problem Other displaced fracture of upper S42.291G Active end of right humerus, subsequent encounter for fracture with delayed healing Problem Pain, joint, shoulder, right M25.511 Active Problem Displaced fracture of proximal end S42.209G Active of humerus with delayed healing Problem Other closed displaced fracture of S42.292A Active proximal end of left humerus, initial encounter Medications Medication Code Code Instructions Start End Status Dosage System Date Date Pantoprazole [facility] 68727492567 40 MG Oral Active not Sodium defined Symbicort ND 41206130933 160-4.5 MCG/ACT Active not Inhalation defined Rosuvastatin ND 37873361523 20 MG Oral Active not Calcium defined Ciprofloxacin HCl [facility] 70009120571 500 MG Oral Active not defined Sucralfate ND 91159774096 1 GM Oral Active not defined Tylenol NDC 0 Oral Nov 06, Active 1 tab 2018 Albuterol Sulfate ND 21177270417 (2.5 MG/3ML) Active not 0.083% defined Inhalation Results No Known Results Summary Purpose [employer] Submission
--- NOTE | 2018-06-11 18:14 | RAD REPORT ---
EXAM DESCRIPTION: RAD - Chest Single View - 06/11/2018 6:08 pm CLINICAL HISTORY: Cough;SOB Chest pain. COMPARISON: Chest Pa And Lat (2 Views) dated 09/01/2017; Chest Single View dated 08/31/2017; Chest Pa And Lat (2 Views) dated 08/28/2017; Chest Single View dated 08/19/2017; Humerus Right dated 01/23/2018 FINDINGS: Portable technique limits examination quality. Mild to moderate pulmonary edema suspected. The heart is mildly enlarged in size. Comminuted and disp laced fracture the proximal right humerus noted. IMPRESSION: Mild to moderate CHF versus volume overload pattern.
[2018-06-11 18:15] LABS: Absolute Lymphocytes (CBC) 0.4 K/uL (0.7-4.9); Absolute Monocytes 0.4 K/uL (0.1-1.3); Absolute Neutrophil 4.4 K/uL (1.8-8.0); Basophils % 0.4 % (0-1.3); Eosinophils % 0.4 % (0-4.4); Hematocrit 25.9 % (36.0-45.0); Lymphocytes % 8.3 % (15.3-44.8); MPV 11.4 fL (7.6-11.3); Monocytes % 8.3 % (3.3-12.3); RBC Red Blood Cell Count 2.71 M/uL (3.86-4.86)
[2018-06-11 18:22] LABS: Protime INR 1.35
[2018-06-11 18:30] LABS: Albumin 1.9 g/dL (3.4-5.0); Bilirubin Direct 3.4 mg/dL (0-0.2); Bilirubin Total 4.5 mg/dL (0.2-1.0); Magnesium 2.9 mg/dL (1.8-2.4); Potassium 3.7 mmol/L (3.5-5.1); Protein, Total 8.4 g/dL (6.4-8.2); Troponin (Emerg Dept Use Only) 0.15 ng/mL (0.0-0.045)
[2018-06-11 18:41] LABS: Blood Morphology Comment NOTED (NOT SEEN); Platelet Estimate DECR; Rouleau NOTED; Urine White Blood Cell Casts OK
[2018-06-11] MEDS ORDERED: ALBUTEROL 2.5 MG/3 ML NEB SOL ONE (19:34)
[2018-06-11] MEDS ORDERED: ASPIRIN 81 MG CHEWABLE TABLET ONE (19:34)
[2018-06-11] MEDS ORDERED: IPRATROPIUM BROM 0.5MG/2.5ML ONE (19:34)
[2018-06-11 19:45] LABS: Urine Bacteria 20-50 /HPF (<20); Urine Culture Reflex Order NOT NEEDED; Urine RBC <5 /HPF (NONE SEEN)
[2018-06-11 19:46] LABS: Urine Amorphous Sediment 1+ /HPF (NONE SEEN); Urine Coarse Granular Casts >10 /LPF (NONE SEEN)
[2018-06-11 20:04] LABS: Urine Blood 3+ (NEG); Urine Glucose NEGATIVE (NEG); Urine Protein 3+ (NEG); Urine Specific Gravity 1.025 (1.005-1.030); Urine pH 5.5 (5.0-7.0)
--- NOTE | 2018-06-11 20:17 | EDPHYS ---
Physician Documentation [facility] Name: Ofelia Huizar Age: 77 yrs Sex: Female : 1940 Arrival Date: 06/11/2018 Time: 17:23 Bed 8 Private MD: Jose Martin Beckman ED Physician Chung Starkey HPI: 06/11 18:00 This 77 yrs old Female presents to ER via Wheelchair with complaints of cp Retaining fluid. 18:00 The patient has shortness of breath at rest. Onset: The symptoms/episode began/occurred cp 1 week(s) ago. 18:00 Duration: The symptoms are continuous, and are steadily getting worse. Associated signs cp and symptoms: Pertinent negatives: chest pain, diaphoresis, fever. Severity of symptoms: in the emergency department the symptoms are worse moderately. Historical: - Allergies: 17:33 No Known Allergies; ph - Home Meds: 17:50 rosuvastatin oral oral [Active]; Albuterol Oral [Active]; pantoprazole oral oral hj [Active]; - PMHx: 17:33 Asthma; Bronchitis; High Cholesterol; Hypertension; liver cancer; Pre Diabetes- Diet ph controlled; - PSHx: 17:50 Unable to obtain; hj - Immunization history:: Adult Immunizations unknown. - Social history:: Smoking status: Patient/guardian denies using tobacco, Patient/guardian denies using alcohol. - Ebola Screening: : Patient negative for fever greater than or equal to 101.5 degrees Fahrenheit, and additional compatible Ebola Virus Disease symptoms Patient denies exposure to infectious person Patient denies travel to an Ebola-affected area in the 21 days before illness onset. ROS: 18:05 Constitutional: Negative for body aches, chills, fever, poor PO intake. cp 18:05 Eyes: Negative for injury, pain, redness, and discharge. cp Exam: 18:05 ECG was reviewed by the Attending Physician. cp 18:10 Constitutional: The patient appears alert, awake, non-diaphoretic, non-toxic, well cp developed, well nourished, in obvious distress, mildly distressed. 18:10 Head/Face: Normocephalic, atraumatic. Eyes: Pupils equal round and reactive to light, cp extra-ocular motions intact. Lids and lashes normal. Conjunctiva and sclera are non-icteric and not injected. Cornea within normal limits. Periorbital areas with no swelling, redness, or edema. ENT: Nares patent. No nasal discharge, no septal abnormalities noted. Tympanic membranes are normal and external auditory canals are clear. Oropharynx with no redness, swelling, or masses, exudates, or evidence of obstruction, uvula midline. Mucous membranes moist. Neck: Trachea midline, no thyromegaly or masses palpated, and no cervical lymphadenopathy. Supple, full range of motion without nuchal rigidity, or vertebral point tenderness. No Meningismus. 18:10 Chest/axilla: Inspection: normal, Palpation: is normal, no crepitus, no tenderness. 18:10 Cardiovascular: Rate: normal, Rhythm: regular, Edema: ankle edema, that is moderate, JVD: is not appreciated. 18:10 Respiratory: mild respiratory distress is noted, Respirations: labored breathing, that is mild, Breath sounds: rales, that are moderate, are heard diffusely. 18:10 Abdomen/GI: Inspection: abdomen appears normal, Bowel sounds: active, all quadrants. 18:10 Skin: cellulitis, is not appreciated, no rash present. 18:10 Neuro: Orientation: to person, place \T\ time. Mentation: is normal, Cerebellar function: is grossly normal, Motor: moves all fours, strength is normal, Sensation: is normal. Vital Signs: 17:31 BP 123 / 42; Pulse 97; Resp 30; Temp 97.7; Pulse Ox 97% on R/A; Weight 91.17 kg (R); ph Height 5 ft. 2 in. (157.48 cm); 17:47 BP 132 / 77; Pulse 85; Resp 18; Pulse Ox 98% on 2 lpm NC; hj 18:06 BP 110 / 60; Pulse 96; Resp 18; Pulse Ox 98% on 2 lpm NC; hj 18:56 BP 119 / 53; Pulse 96; Resp 18; Pulse Ox 100% 2 lpm ; hj 19:45 BP 132 / 51; Pulse 94; Resp 18; Pulse Ox 100% on 2 lpm NC; lp1 20:33 BP 125 / 50; Pulse 98; Resp 14; Pulse Ox 100% on 2 lpm NC; lp1 21:15 BP 128 / 56; Pulse 100; Resp 14; Pulse Ox 100% on 2 lpm NC; lp1 22:10 BP 129 / 56; Pulse 99; Resp 16; Pulse Ox 100% on 2 lpm NC; Pain 0/10; lp1 23:03 BP 104 / 51; Pulse 100; Resp 18; Pulse Ox 100% on 2 lpm NC; lp1 17:31 Body Mass Index 36.76 (91.17 kg, 157.48 cm) ph MDM: 17:36 Patient medically screened. cp 20:00 Physician consultation: Tawana Leroy MD was contacted at 20:00, regarding admission, cp to the telemetry unit. patient's condition, and will see patient in ED, shortly. 20:00 Data reviewed: vital signs, nurses notes, lab test result(s), EKG, radiologic studies, cp plain films. 20:00 Test interpretation: by ED physician or midlevel provider: ECG, plain radiologic cp studies. Counseling: I had a detailed discussion with the patient and/or guardian regarding: the historical points, exam findings, and any diagnostic results supporting the discharge/admit diagnosis, lab results, radiology results, the need for further work-up and treatment in the hospital. 03 17:51 Order name: Basic Metabolic Panel cp 06/11 17:51 Order name: CBC with Diff cp 06/11 17:51 Order name: LFT's cp 06/11 17:51 Order name: Magnesium cp / 17:51 Order name: NT PRO-BNP cp / 17:51 Order name: PT-INR; Complete Time: 18:26 cp / 17:51 Order name: Troponin (emerg Dept Use Only); Complete Time: 18:38 cp 06/11 18:38 Interpretation: Normal except: TROPED 0.15. cp / 17:51 Order name: Influenza Screen (a \T\ B); Complete Time: 19:20 cp 06/11 17:52 Order name: Basic Metabolic Panel; Complete Time: 18:38 EDMS 06/11 18:39 Interpretation: Normal except: NA 134; CO2 20; BUN 46; CRE 4.61; GFR 9; CA 7.2. cp / 17:52 Order name: CBC with Automated Diff; Complete Time: 19:20 EDMS 06/11 18:26 Interpretation: Normal except: RBC 2.71; HGB 8.9; HCT 25.9; PLT 59; RDW 16.0; MPV 11.4; cp YONG% 82.6; LYM% 8.3; LYMA 0.4. 03/ 17:52 Order name: Liver (Hepatic) Function; Complete Time: 18:38 EDMS 03/04 19:21 Interpretation: Normal except: AST 143; ALK 230; BILIT 4.5; BILID 3.4; TP 8.4; ALB 1.9; cp GLOB 6.5; A/G 0.3. 03 17:52 Order name: Magnesium; Complete Time: 18:38 EDMS /04 17:52 Order name: NT PRO-BNP; Complete Time: 18:38 EDMS /04 19:25 Interpretation: Abnormal: NT PRO-BNP 5484. cp /04 18:21 Order name: CBC Smear Scan; Complete Time: 19:20 EDMS /04 17:51 Order name: XRAY Chest (1 view); Complete Time: 18:26 cp /04 17:51 Order name: EKG; Complete Time: 17:52 cp /04 17:51 Order name: Cardiac monitoring; Complete Time: 17:52 cp /04 17:51 Order name: EKG - Nurse/Tech; Complete Time: 17:53 cp /04 17:51 Order name: IV Saline Lock; Complete Time: 18:07 cp /04 17:51 Order name: Labs collected and sent; Complete Time: 18:07 cp /04 17:51 Order name: O2 Per Protocol; Complete Time: 17:53 cp /04 17:51 Order name: O2 Sat Monitoring; Complete Time: 17:53 cp /04 18:50 Order name: Urine Dipstick--Ancillary (enter results); Complete Time: 20:17 bd 03/04 20:45 Interpretation: Normal except: UBLD 3+; UPROT 3+. cp / 18:50 Order name: Urine Microscopic Only; Complete Time: 19:54 bd 03/04 19:46 Order name: Type And Screen cp / 19:58 Order name: CT Abd/Pelvis - Without Cont; Complete Time: 20:44 cp 03/04 21:37 Order name: ABO/RH no charge EDMS EC:05 Rate is 96 beats/min. Rhythm is regular. MD interval is normal. QRS interval is normal. cp QT interval is normal. T waves are Inverted in lead III. Interpreted by me. Reviewed by me. Administered Medications: 19:25 Drug: Albuterol - atroVENT (3:1) (2.5 mg - 0.5 mg) 3 ml Route: Nebulizer; lp1 20:33 Follow up: Response: No adverse reaction; No change in condition lp1 19:25 Drug: Aspirin Chewable Tablet 324 mg Route: PO; lp1 20:33 Follow up: Response: No adverse reaction lp1 20:32 Drug: Lasix 40 mg Route: IVP; Site: right wrist; lp1 22:29 Follow up: Response: No change in condition lp1 Disposition: 06/11/18 20:17 Hospitalization ordered by Tawana Leroy for Inpatient Admission. Preliminary diagnosis are Unspecified combined systolic (congestive) and diastolic (congestive) heart failure, Acute kidney failure, Anemia in chronic diseases classified elsewhere. - Bed requested for Telemetry/MedSurg (Inpatient). - Status is Inpatient Admission. lp1 - Condition is Stable. - Problem is new. - Symptoms have improved. UTI on Admission? No Addendum: 06/16/2018 03:03 Co-signature as Attending Physician, Chung Starkey MD. g s Signatures: Dispatcher [employer] EDMS Gloria Bobby ms, Laura RN BAILEY lp1 Missy Byrnes RN RN Mckinley Whalen, RN RN Nash Nelson PA PA Chung Kinney MD MD Corrections: (The following items were deleted from the chart) 06/11 18:39 18:39 Normal except: NA 134; CO2 20; BUN 46; CRE 4.61; GFR 9. cp cp 20:18 20:17 Hospitalization Ordered by Tawana Leroy MD for Inpatient Admission. Preliminary cp diagnosis is Unspecified combined systolic (congestive) and diastolic (congestive) heart failure; Acute kidney failure. Bed requested for Telemetry/MedSurg (Inpatient). Status is Inpatient Admission. Condition is Stable. Problem is new. Symptoms have improved. UTI on Admission? No. cp 21:22 20:18 06/11/2018 20:17 Hospitalization Ordered by Tawana Leroy MD for Inpatient ms Admission. Preliminary diagnosis is Unspecified combined systolic (congestive) and diastolic (congestive) heart failure; Acute kidney failure; Anemia in chronic diseases classified elsewhere. Bed requested for Telemetry/MedSurg (Inpatient). Status is Inpatient Admission. Condition is Stable. Problem is new. Symptoms have improved. UTI on Admission? No. cp 23:08 21:22 06/11/2018 20:17 Hospitalization Ordered by Tawana Leroy MD for Inpatient lp1 Admission. Preliminary diagnosis is Unspecified combined systolic (congestive) and diastolic (congestive) heart failure; Acute kidney failure; Anemia in chronic diseases classified elsewhere. Bed requested for Telemetry/MedSurg (Inpatient). Status is Inpatient Admission. Condition is Stable. Problem is new. Symptoms have improved. UTI on Admission? No. ms
--- NOTE | 2018-06-11 20:17 | ER ---
Nurse's Notes [facility] Name: Ofelia Huizar Age: 77 yrs Sex: Female : 1940 Arrival Date: 06/11/2018 Time: 17:23 Bed 8 Private MD: Jose Martin Beckman Diagnosis: Unspecified combined systolic (congestive) and diastolic (congestive) heart failure;Acute kidney failure;Anemia in chronic diseases classified elsewhere Presentation: 06/11 17:28 Presenting complaint: Child states: Weight gain of 9 lbs in 1 week, increased eyad leg ph and abdominal swelling, back pain and SOB at rest, audible crackles in triage. Transition of care: patient was not received from another setting of care. Onset of symptoms was June 11, 2018. Risk Assessment: Do you want to hurt yourself or someone else? Patient reports no desire to harm self or others. Care prior to arrival: None. 17:28 Method Of Arrival: Wheelchair ph 17:28 Acuity: BIB 2 ph 17:41 Initial Sepsis Screen: Does the patient meet any 2 criteria? No. Patient's initial hj sepsis screen is negative. Does the patient have a suspected source of infection? No. Patient's initial sepsis screen is negative. Triage Assessment: 17:41 General: Appears in no apparent distress. uncomfortable, Behavior is calm, cooperative, hj appropriate for age. Pain: Denies pain. 17:41 EENT: No signs and/or symptoms were reported regarding the EENT system. Neuro: Level of hj Consciousness is awake, alert, obeys commands, Oriented to person, place, time, situation, Appropriate for age. Cardiovascular: Capillary refill < 3 seconds Patient's skin is warm and dry. Respiratory: Reports shortness of breath Breath sounds with crackles. GI: No signs and/or symptoms were reported involving the gastrointestinal system. : No signs and/or symptoms were reported regarding the genitourinary system. Derm: No signs and/or symptoms reported regarding the dermatologic system. Musculoskeletal: No signs and/or symptoms reported regarding the musculoskeletal system. Historical: - Allergies: 17:33 No Known Allergies; ph - Home Meds: 17:50 rosuvastatin oral oral [Active]; Albuterol Oral [Active]; pantoprazole oral oral hj [Active]; - PMHx: 17:33 Asthma; Bronchitis; High Cholesterol; Hypertension; liver cancer; Pre Diabetes- Diet ph controlled; - PSHx: 17:50 Unable to obtain; hj - Immunization history:: Adult Immunizations unknown. - Social history:: Smoking status: Patient/guardian denies using tobacco, Patient/guardian denies using alcohol. - Ebola Screening: : Patient negative for fever greater than or equal to 101.5 degrees Fahrenheit, and additional compatible Ebola Virus Disease symptoms Patient denies exposure to infectious person Patient denies travel to an Ebola-affected area in the 21 days before illness onset. Screenin:40 Abuse screen: Denies threats or abuse. Denies injuries from another. Nutritional hj screening: No deficits noted. Tuberculosis screening: No symptoms or risk factors identified. Fall Risk Secondary diagnosis (15 points). Assessment: 18:08 Reassessment: see triage for assessment;. hj 18:55 Reassessment: Patient and/or family updated on plan of care and expected duration. Pain hj level reassessed. Patient is alert, oriented x 3, equal unlabored respirations, skin warm/dry/pink. awaiting orders;. 19:30 General: Appears uncomfortable, Behavior is appropriate for age. Pain: Denies pain. lp1 Neuro: Level of Consciousness is awake, alert, obeys commands, Oriented to person, place, time, situation. Cardiovascular: Patient's skin is warm and dry. Edema pitting to left midcalf, left ankle, left foot, left toes, right midcalf, right ankle, right foot and right toes. Respiratory: Reports shortness of breath at rest on exertion Airway is patent Respiratory effort is labored, Respiratory pattern is regular, Breath sounds with crackles bilaterally. the patient has moderate shortness of breath. GI: Abdomen is non-distended. : Li in place to gravity drainage. EENT: No signs and/or symptoms were reported regarding the EENT system. Derm: Skin is fragile, is thin, Skin is dry, multiple bruising to bilateral arms. Musculoskeletal: Circulation, motion, and sensation intact. 20:30 Reassessment: No changes from previously documented assessment. Patient and daughter lp1 aware of pending admission. 21:05 Reassessment: Dr. Leroy at bedside to discuss plan of care with patient and family. lp1 22:30 Neuro: Level of Consciousness is awake, alert, obeys commands. Respiratory: Respiratory lp1 effort is even, weak, Breath sounds with crackles bilaterally. Derm: Skin is fragile, is thin, Skin is dry. 23:04 Reassessment:. lp1 Vital Signs: 17:31 BP 123 / 42; Pulse 97; Resp 30; Temp 97.7; Pulse Ox 97% on R/A; Weight 91.17 kg (R); ph Height 5 ft. 2 in. (157.48 cm); 17:47 BP 132 / 77; Pulse 85; Resp 18; Pulse Ox 98% on 2 lpm NC; hj 18:06 BP 110 / 60; Pulse 96; Resp 18; Pulse Ox 98% on 2 lpm NC; hj 18:56 BP 119 / 53; Pulse 96; Resp 18; Pulse Ox 100% 2 lpm ; hj 19:45 BP 132 / 51; Pulse 94; Resp 18; Pulse Ox 100% on 2 lpm NC; lp1 20:33 BP 125 / 50; Pulse 98; Resp 14; Pulse Ox 100% on 2 lpm NC; lp1 21:15 BP 128 / 56; Pulse 100; Resp 14; Pulse Ox 100% on 2 lpm NC; lp1 22:10 BP 129 / 56; Pulse 99; Resp 16; Pulse Ox 100% on 2 lpm NC; Pain 0/10; lp1 23:03 BP 104 / 51; Pulse 100; Resp 18; Pulse Ox 100% on 2 lpm NC; lp1 17:31 Body Mass Index 36.76 (91.17 kg, 157.48 cm) ph ED Course: 17:23 Patient arrived in ED. mr 17:23 Jose Martin Beckman MD is Private Physician. mr 17:31 Triage completed. ph 17:33 Arm band placed on left wrist. ph 17:36 Nash Nelson PA is PHCP. cp 17:36 Chung Starkey MD is Attending Physician. cp 17:40 Mckinley Whalen RN is Primary Nurse. hj 17:41 Patient has correct armband on for positive identification. Placed in gown. Bed in low hj position. Call light in reach. Side rails up X 1. Adult w/ patient. 17:57 EKG done, by in shop service technician. reviewed by Nash GALVAN. 3 18:00 Initial lab(s) drawn, by me, sent to lab. Inserted saline lock: 24 gauge in left upper hj arm, using aseptic technique. Blood collected. 18:03 Missed attempt(s): 22 gauge in right antecubital area. IV discontinued, intact, pc1 bleeding controlled, No redness/swelling at site. Pressure dressing applied. 18:06 XRAY Chest (1 view) In Process Unspecified. EDMS 18:15 Inserted saline lock: 24 gauge in right wrist, using aseptic technique. hj 18:43 Li cath inserted, using sterile technique, 16 Fr., by ks, balloon inflated, to gravity drainage, urine specimen collected. Patient tolerated well. 19:20 Brittni Abel, RN is Primary Nurse. lp1 19:45 No provider procedures requiring assistance completed. lp1 20:[address] 2 20:15 [address] completed. Patient tolerated procedure well. Patient moved back from CT. nj 20:16 CT Abd/Pelvis - Without Cont In Process Unspecified. EDMS 20:16 Tawana Leroy MD is Hospitalizing Provider. cp 21:00 Inserted 18 gauge 10 cm midline to left upper basilic vein on first attempt. Line with good blood return and flushes well. Administered Medications: 19:25 Drug: Albuterol - atroVENT (3:1) (2.5 mg - 0.5 mg) 3 ml Route: Nebulizer; lp1 20:33 Follow up: Response: No adverse reaction; No change in condition lp1 19:25 Drug: Aspirin Chewable Tablet 324 mg Route: PO; lp1 20:33 Follow up: Response: No adverse reaction lp1 20:32 Drug: Lasix 40 mg Route: IVP; Site: right wrist; lp1 22:29 Follow up: Response: No change in condition lp1 Outcome: 20:17 Decision to Hospitalize by Provider. cp 20:34 Condition: stable lp1 20:34 Instructed on the need for admit. 22:29 Admitted to Med/surg accompanied by tech, via stretcher, room 210, with oxygen, with lp1 chart, Report called to Clementine Luciano RN 23:08 Patient left the ED. lp1 Signatures: Dispatcher [employer] EDLA MarrufoNicolasa enrique mr BensonVita RN RN Letha Jean-Baptiste RN RN Brittni Abel RN RN lp1 Missy Byrnes RN RN Mckinley Whalen RN RN hj Nash Nelson PA PA cp Jordan, Nathan nj McGuire, Victoria 2 Danay Bosch 3 Neri Peters [facility] Corrections: (The following items were deleted from the chart) 17:33 17:28 Acuity: BIB 3 ph ph 20:22 19:45 BP 132 / 51; Pulse 94bpm; Resp 18bpm; Pulse Ox 100% RA; lp1 lp1 23:08 20:30 Reassessment: Patient appears in no apparent distress at this time. No changes lp1 from previously documented assessment. Patient and daughter aware of pending admission lp1 23:19 23:04 Reassessment: lp1 lp1
[2018-06-11] MEDS ORDERED: FUROSEMIDE 40 MG/4 ML VIAL ONE (20:21)
--- NOTE | 2018-06-11 20:27 | RAD REPORT ---
EXAM DESCRIPTION: CT - Abdomen Pelvis Wo Contrast - 06/11/2018 8:16 pm CLINICAL HISTORY: Abdominal pain. elevated liver enzymes COMPARISON: Abdomen W/Wo Contrast dated 08/20/2017; Mri Abdomen W/Wo Cont dated 09/14/2017 TECHNIQUE: CT imaging of the abdomen and pelvis was performed without contrast. Solid organ, bowel a nd vascular assessment is limited due to lack of IV and oral contrast. All CT scans are performed using dose optimization technique as appropriate and may include automated exposure control or mA/KV adjustment according to patient size. FINDINGS: Mild interstitial in pulmonary edema in the lung bases seen. The liver is shrunken and nodular in contour compatible with cirrhosis. Focally prominent low-density area measuring 3 cm in the far inferior right lobe of the liver is noted, likely a liver mass. This appears similar in size compared to a prior MR liver protocol dated 09/14/2017. The spleen is mildly enlarged in size. Mild ascites is present. Cholecystectomy clips seen. No bowel obstruction or free air. Both adrenal g lands and kidneys are within normal limits. The appendix is normal. Multilevel degenerative changes are present throughout the lower lumbar levels, greatest at L4-5. IMPRESSION: Liver cirrhosis is noted with vague low-density 3 cm mass in the far inferior right lobe . Most likely, this mass would represent HCC in correlation with alpha fetoprotein level may be helpf ul. Mild ascites, new since comparative study. A limited non-contrast examination was performed as detailed.
--- NOTE | 2018-06-11 21:29 | P.HP ---
Certification for Inpatient Patient admitted to: Inpatient With expected LOS: >2 Midnights Practitioner: I am a practitioner with admitting privileges, knowledge of patient current condition, hospital course, and medical plan of care. Services: Services provided to patient in accordance with Admission requirements found in Title 42 Section 412.3 of the Code of Federal Regulations Patient History Date of Service: 06/11/18 Reason for admission: acute on chronic diastolic CHF History of Present Illness: Ms Huizar is a 77 years old woman with history of chronic diastolic CHF, HTN, GERD, liver cancer, followed up at [facility] in [place], according to her daughter, the patient received only 1 round of radiation therapy, last time seen by steward/stewardess banquet was in april of 2018, Dr David is her PCP and followed up very close as well. The patient was doing well until 1 week ago, when she started to have progressive lower extremity swelling. Then she gradually start with increasing abdominal girth and SOB. Her home health nurse said that she gained 9 Lb over the last week. She lost her appetite lately. No history of chest pain, no nausea or vomiting, no fever. Lab work is significantly abnormal. Elevated trop I. She denied chest pain. EKG shows no ST-T abnormalities. Also worsening liver and kidney function compared with records in our facility, she has newer lab works done outside, her daughter will bring her records in the morning. CXR remarkable for bilateral infiltrate consistent with pulmonary edema. O2 sat 97% on RA. CT abd/pelvis shows similar size liver mass, no acute abnormalities. Allergies No Known Allergies Allergy (Verified 08/19/17 21:36) Home medications list reviewed: Yes Home Medications: Albuterol Neb [Proventil 0.083% Neb Soln] 1 vial IH BID 08/31/17 Budesonide/Formoterol Fumarate [Symbicort 160-4.5 Mcg Inhaler] 2 puff IH BID Pregabalin [Lyrica] 1 cap PO TID 08/31/17 Rosuvastatin Calcium [Crestor] 1 tab PO BEDTIME 08/31/17 Tramadol HCl [Ultram] 1 tab PO TID 08/31/17 Amlodipine [Norvasc*] 2.5 mg PO DAILY #30 tab 09/01/17 Furosemide [Lasix*] 1 tab PO DAILY #30 tab 09/01/17 predniSONE [Deltasone*] 10 mg PO DAILY #10 tab 09/01/17 - Past Medical/Surgical History Diabetic: No -: Hypertension -: Hyperlipidemia -: Mild cirrhosis, fatty liver, hepatitis-C -: Thrombocytopenia -: Chronic renal disease -: COPD -: CHF, diastolic dysfunction -: Chronic pain -: eye surgery -: hysterectomy Psychosocial/ Personal History: Patient is - Family History Father -: Heart disease, Cancer - Social History Smoking Status: Never smoker Alcohol use: No CD- Drugs: No Caffeine use: Yes Place of Residence: Home Review of Systems 10-point ROS is otherwise unremarkable Physical Examination - Physical Exam General: Alert, In no apparent distress, Other (jaundice) HEENT: Atraumatic, PERRLA, Mucous membr. moist/pink, EOMI, Scleral icterus Neck: Supple, 2+ carotid pulse no bruit, No LAD, Without JVD or thyroid abnormality Respiratory: Normal air movement, Crackles/rales (bibasilar rales) Cardiovascular: Regular rate/rhythm, Normal S1 S2 Gastrointestinal: Normal bowel sounds, Distended, Ascites Musculoskeletal: No tenderness Integumentary: No rashes Neurological: Normal speech, Normal strength at 5/5 x4 extr, Normal tone, Normal affect Lymphatics: No axilla or inguinal lymphadenopathy - Studies Laboratory Data (last 24 hrs) 06/11/18 18:00: PT 15.7 H, INR 1.35 06/11/18 18:00: WBC 5.3, Hgb 8.9 L, Hct 25.9 L, Plt Count 59 L 06/11/18 18:00: Sodium 134 L, Potassium 3.7, BUN 46 H, Creatinine 4.61 H, Glucose 86, Magnesium 2.9 H, Total Bilirubin 4.5 H, AST 143 H, ALT 66, Alkaline Phosphatase 230 H Microbiology Data (last 24 hrs): 06/11/18 17:51 Nasopharnyx Influenza Type A Antigen Screen - Final 06/11/18 17:51 Nasopharnyx Influenza Type B Antigen Screen - Final Assessment and Plan - Problems (Diagnosis) (1) Acute kidney injury superimposed on CKD Current Visit: Yes Status: Acute (2) Anasarca Current Visit: Yes Status: Acute (3) Acute on chronic diastolic CHF (congestive heart failure) Current Visit: Yes Status: Acute (4) Liver cancer Current Visit: Yes Status: Acute Qualifiers: Liver malignancy type: hepatocellular carcinoma Qualified Code(s): C22.0 - Liver cell carcinoma (5) Elevated LFTs Onset Date: 08/21/17 Current Visit: No Status: Acute - Plan The patient will be admitted to the hospital due to CHF exacerbation. Will order a new ECHO, IV lasix. Consult Recruitment Coordinator for worsening renal fuction, potentially will need HD if not respond to diuretic treatment. Consult Cardiology due to abnormal cardiac enzymes, however, it may be due to worsening renal clearance. - Advance Directives Does patient have a Living Will: No Does patient have a Durable POA for Healthcare: No - Code Status/Comfort Care Code Status Assessed: Yes Code Status: Full Code
[2018-06-11] MEDS ORDERED: ONDANSETRON 4 MG/2 ML VIAL IV PRN (22:43)
[2018-06-12] MEDS: FUROSEMIDE 40 MG/4 ML VIAL IV SCH ×3 (00:20→17:07)
[2018-06-12] MEDS ORDERED: IPRATROPIUM BROM 0.5MG/2.5ML NEB PRN (01:38)
[2018-06-12] MEDS ORDERED: ALBUTEROL 2.5 MG/3 ML NEB SOL NEB PRN (01:38)
[2018-06-12] MEDS ORDERED: ALBUTEROL 2.5 MG/3 ML NEB SOL ONE (01:51)
[2018-06-12 06:11] LABS: Absolute Lymphocytes (CBC) 0.2 K/uL (0.7-4.9); Absolute Monocytes 0.5 K/uL (0.1-1.3); Absolute Neutrophil 4.2 K/uL (1.8-8.0); Basophils % 0.2 % (0-1.3); Eosinophils % 1.6 % (0-4.4); Hematocrit 23.2 % (36.0-45.0); Lymphocytes % 4.7 % (15.3-44.8); MPV 11.6 fL (7.6-11.3); Monocytes % 10.6 % (3.3-12.3); RBC Red Blood Cell Count 2.44 M/uL (3.86-4.86)
[2018-06-12 06:33] LABS: Albumin 1.7 g/dL (3.4-5.0); Potassium 3.9 mmol/L (3.5-5.1); Protein, Total 7.3 g/dL (6.4-8.2)
[2018-06-12 06:44] LABS: Blood Morphology Comment NOT SEEN (NOT SEEN); Platelet Estimate DECR; Urine White Blood Cell Casts OK
--- NOTE | 2018-06-12 09:36 | CON ---
Date of Consultation: 06/12/2018 The patient was admitted to Dr. Rodriguez on 06/11/2018. I saw the patient on 06/12/2018. Reason For Consultation: Congestive heart failure and renal failure. History Of Present Illness: Ms. Huizar is a 77-year-old Latin-[place] woman, who has had a history of chronic renal insufficiency stage III, hypertension, liver cancer; untreated, gastroesophageal ref lux disease, COPD, dyslipidemia, and prediabetes. She had an echocardiogram in August of 2017 showing a normal ejection fraction with decreased left ventricular compliance. She came in with dyspnea on ex ertion. Chest x-ray shows moderate congestive heart failure. CT of the abdomen shows cirrhosis, a 3 cm liver mass, and ascites. Her creatinine was 4.6, hemoglobin was 8.1. Her troponin was 0.17, and BNP was 5484. She was also noted to be anemic at 8.1 hemoglobin with a platelet count of 50,000. Allergies: NONE. Review of Systems: Negative. Social History: Negative for tobacco, alcohol, or drugs. Family History: Positive for diabetes and dyslipidemia. Medications: Her medications at home are supposed to be Crestor, albuterol, and Protonix. Physical Examination: General: Ms. Huizar was in no acute distress. She was alert and oriented x3. Vital Signs: Stable. She was in a sinus rhythm. She was afebrile. : She had diuresed significantly overnight, and is feeling better. HEENT: Negative. Neck: Supple without any bruit, lymphadenopathy, or thyromegaly. She did have about 2 cm JVD to the angle of the jaw. Chest: Reveals rales at both bases. Cardiac: Reveals a regular rhythm and rate with an S4 gallop. No murmurs or rubs. Abdomen: Obese, nontender, with positive bowel sounds. Extremities: Revealed no clubbing, cyanosis. She had 2+ edema. Skin: Moist. Neurologic: She was intact. Pulses were present distally bilaterally, but they were weak in the claudette salis pedis and posterior tibial. Diagnostic Data: As stated earlier. Impression And Plan: 1.Acute exacerbation of chronic diastolic congestive heart failure. Another echocardiogram is pendi ng. I agree with her present regimen with Lasix. She may benefit from low-dose beta-blockers as wel l. Salt restriction. 2.Qgdam-wy-jaxvlzn renal failure. Nephrology consultation is pending. She may need dialysis down t he road. 3.Untreated liver cancer. 4.Hypertension, well-controlled. 5.Prediabetes. 6.Gastroesophageal reflux disease. 7.Asthma. 8.Dyslipidemia. 9.Anemia. 10.Thrombocytopenia. 11.Elevated troponin and BNP consistent with congestive heart failure and renal failure. We will follow Ms. Huizar along with Dr. Rodriguez, and Nephrology. KIANNA/EDWIGE Voice ID: [id number] Report ID: [id number]
--- NOTE | 2018-06-12 10:32 | EKG ---
Test Date: 2018-06-11 Test Time: 17:50:38 Waste Specialist: POLY MEASUREMENT RESULTS: Intervals: Rate: 96 CA: 108 QRSD: 90 QT: 364 QTc: 459 Wesley: P: 61 CA: 108 QRS: 96 T: -12 INTERPRETIVE STATEMENTS: Sinus rhythm with short CA Rightward axis Cannot rule out Anterior infarct, age undetermined T wave abnormality, consider inferior ischemia Abnormal ECG Compared to ECG 08/31/2017 10:41:38 Short CA interval now present Right-axis deviation now present T-wave abnormality now present Possible ischemia now present Sinus bradycardia no longer present Myocardial infarct finding still present Electronically Signed On 06-12-18 10:29:27 PLASTICS PRODUCTION MACHINE OPERATOR by Ravi Kat
[2018-06-12] MEDS: TRAMADOL HCL 50 MG TAB PO PRN ×2 (10:45→18:54)
--- NOTE | 2018-06-12 10:53 | ECHO ---
HEIGHT: 5 ft 2 in WEIGHT: 201 lb 0 oz DATE OF STUDY: 06/12/[address]: Tawana Rodriguez MD 2-DIMENSIONAL: YES M.MODE: YES DOPPLER: YES COLOR FLOW: YES TDS: YES PORTABLE: NO DEFINITY: NO BUBBLE STUDY: NO DIAGNOSIS: CONGESTIVE HEART FAILURE, EXACERBATION CARDIAC HISTORY: CATHERIZATION: NO SURGERY: NO PROSTHETIC VALVE: NO PACEMAKER: NO MEASUREMENTS (cm) DIASTOLIC (NORMALS) SYSTOLIC (NORMALS) IVSd 0.9 (0.6-1.2) LA Diam 4.2 (1.9-4.0) LVEF 54% LVIDd 4.7 (3.5-5.7) LVIDs 3.4 (2.0-3.5) %FS 28% LVPWd 1.0 (0.6-1.2) Ao Diam 2.8 (2.0-3.7) 2 DIMENSIONAL ASSESSMENT: RIGHT ATRIUM: NORMAL LEFT ATRIUM: DILATED RIGHT VENTRICLE: NORMAL LEFT VENTRICLE: NORMAL TRICUSPID VALVE: NORMAL MITRAL VALVE: NORMAL PULMONIC VALVE: NORMAL AORTIC VALVE: SCLEROSIS PERICARDIAL EFFUSION: NONE AORTIC ROOT: NORMAL LEFT VENTRICULAR WALL MOTION: DECREASED LEFT VENTRICULAR COMPLIANCE. DOPPLER/COLOR FLOW: MILD TRICUSPID REGURGITATION. COMMENTS: MILD TRICUSPID REGURGITATION. NORMAL RIGHT VENTRICULAR SYSTOLIC PRESSURE. MILD AORTIC SCLEROSIS WITH NO STENOSIS. NORMAL LEFT VENTRICULAR SIZE AND EJECTION FRACTION. DECREASED LEFT VENTRICULAR COMPLIANCE. TECHNOLOGIST: Lucia WAGGONER
[2018-06-12] MEDS: HYDROCODONE/APAP 7.5/325 MG TAB PO PRN ×2 (12:24→17:09)
--- NOTE | 2018-06-12 14:36 | P.PN ---
Subjective Date of Service: 06/12/18 Primary Care Provider: Dr. Piña; Nephrology-Dr. Warner Chief Complaint: acute on chronic diastolic CHF Subjective: Other (Still with crackles. Edema to the lower extremities noted) Physical Examination - Vital Signs Temperature: 99.4 F Blood Pressure: 103/51 Pulse: 102 Respirations: 18 Pulse Ox (%): 95 - Physical Exam General: Alert, In no apparent distress, Oriented x3, Cooperative HEENT: Atraumatic Neck: Supple Respiratory: Crackles/rales Cardiovascular: Normal pulses, Regular rate/rhythm Gastrointestinal: Normal bowel sounds, Soft and benign, Non-distended, No tenderness, No masses, No rebound, No guarding, Ascites (Mild) Musculoskeletal: No erythema, No tenderness, No warmth Integumentary: Tenderness/swelling (1 to 2+ pitting edema at the lower extremities bilateral) Neurological: Normal speech, Normal strength at 5/5 x4 extr, Normal tone, Normal affect - Studies Laboratory Data (last 24 hrs) 06/11/18 18:00: PT 15.7 H, INR 1.35 06/11/18 18:00: WBC 5.3, Hgb 8.9 L, Hct 25.9 L, Plt Count 59 L 06/11/18 18:00: Sodium 134 L, Potassium 3.7, BUN 46 H, Creatinine 4.61 H, Glucose 86, Magnesium 2.9 H, Total Bilirubin 4.5 H, AST 143 H, ALT 66, Alkaline Phosphatase 230 H Microbiology Data (last 24 hrs): 06/11/18 17:51 Nasopharnyx Influenza Type A Antigen Screen - Final 06/11/18 17:51 Nasopharnyx Influenza Type B Antigen Screen - Final Medications List Reviewed: Yes Assessment & Plan Discharge Plan: Other (Skilled facility) Plan to discharge in: Greater than 2 days Physician Review Additional Text: Impression: Shortness of breath secondary to acute on chronic diastolic CHF complicated with liver cirrhosis/Hepatocellular carcinoma and acute on chronic renal disease stage 5 not on dialysis Chronic anemia with thrombocytopenia likely related to chronic disease Elevated liver function likely related to liver cirrhosis and HCC Ascites related to her liver cirrhosis Plan: Shortness of breath secondary to acute on chronic diastolic CHF complicated with liver cirrhosis/Hepatocellular carcinoma, acute on chronic renal disease stage 5 not on dialysis, and COPD: Will continue with fluid restriction and IV Lasix-diuretic therapy. Case discussed with Nephrology. Will continue to diurese. If no significant improvement patient will likely require hemodialysis. Case discussed at length with patient and family. Will need to obtain more permission about her cancer to the liver. No need to assess prognosis. Patient also with underlying acute on chronic diastolic CHF. Patient will likely require skilled placement at discharge. Continue to maintain sats above 90%. Continuous tube feeding medication. Recheck chest x- ray and lab in the morning. Will check iron studies and TSH. Continue to monitor closely. Chronic anemia with thrombocytopenia likely related to chronic disease: Will monitor closely. Will send lab for iron and B12 studies. Will also obtain peripheral smear. Will hold DVT prophylaxis due to thrombocytopenia Elevated liver function likely related to liver cirrhosis and HCC: Will need to discuss with her young adult librarian an oncologist for further recommendation. Will monitor ammonia level. Ascites related to her liver cirrhosis: Will monitor closely. Patient may require paracentesis if this continues to increase. Time Spent Managing Pts Care (In Minutes): 55
[2018-06-12 16:20] LABS: Ferritin 1363.4 ng/mL (8-388); Thyroid Stimulating Hormone 0.709 uIU/mL (0.360-3.740); Transferrin 108 mg/dL (200-360)
[2018-06-12] MEDS ORDERED: FUROSEMIDE 40 MG/4 ML VIAL IV ONE (18:37)
[2018-06-12] MEDS ORDERED: ARFORMOTEROL TARTRATE 15 MCG/2 ML VIAL.NEB NEB SCH (20:00)
[2018-06-12] MEDS ORDERED: MORPHINE 2 MG/ML SYR IV PRN (20:52)
[2018-06-12] MEDS ORDERED: PANTOPRAZOLE 40MG TABLET PO SCH (21:00)
--- NOTE | 2018-06-12 21:06 | P.CNS ---
Date of Consult: 06/12/18 Reason for Consult: SUMAN/ CKD III Requesting Physician: Paresh Soto Primary Care Provider: Dr. Beckman; Nephrology-Dr. Warner Chief Complaint: acute on chronic diastolic CHF History of Present Illness: Ms Huizar is a 77 years old woman with history of chronic diastolic CHF, HTN, GERD, liver cancer, followed up at [facility] in [place], according to her daughter, the patient received only 1 round of radiation therapy, last time seen by mold cutting machine operator was in april of 2018, Dr David is her PCP and followed up very close as well. The patient was doing well until 1 week ago, when she started to have progressive lower extremity swelling. Then she gradually start with increasing abdominal girth and SOB. Her home health nurse said that she gained 9 Lb over the last week. She lost her appetite lately. No history of chest pain, no nausea or vomiting, no fever. Lab work is significantly abnormal. Elevated trop I. She denied chest pain. EKG shows no ST-T abnormalities. Also worsening liver and kidney function compared with records in our facility, she has newer lab works done outside, her daughter will bring her records in the morning. CXR remarkable for bilateral infiltrate consistent with pulmonary edema. O2 sat 97% on RA. CT abd/pelvis shows similar size liver mass, no acute abnormalities. Allergies No Known Allergies Allergy (Verified 06/12/18 01:10) Home medications list reviewed: Yes Home Medications: Albuterol Neb [Proventil 0.083% Neb Soln] 1 vial NEB TID 08/31/17 Budesonide/Formoterol Fumarate [Symbicort 160-4.5 Mcg Inhaler] 2 puff IH BIDP PRN 08/31/17 Rosuvastatin Calcium [Crestor] 1 tab PO BEDTIME 08/31/17 Pantoprazole [Protonix Tab*] 40 mg PO BID 06/12/18 - Past Medical/Surgical History Diabetic: No -: Hypertension -: Hyperlipidemia -: Mild cirrhosis, fatty liver, hepatitis-C -: Thrombocytopenia -: Chronic renal disease -: COPD -: CHF, diastolic dysfunction -: Chronic pain -: cataract sx both eyes -: hysterectomy Psychosocial/ Personal History: Patient is - Family History Father Medical History: Heart disease, Cancer - Social History Smoking Status: Unknown if ever smoked Alcohol use: No CD- Drugs: No Caffeine use: Yes Place of Residence: Home Review of Systems 10-point ROS is otherwise unremarkable General: Weakness, Malaise Respiratory: Cough, Shortness of Breath, SOB with Excertion Cardiovascular: Edema Neurological: Weakness Physical Examination Temp Pulse Resp BP Pulse Ox 99.1 F 109 H 17 100/60 94 06/12/18 16:00 06/12/18 18:54 06/12/18 16:00 06/12/18 18:54 06/12/18 16:00 General: Oriented x2, Cooperative, Moderate distress HEENT: Atraumatic, Mucous membr. moist/pink Neck: Supple, JVD distended Respiratory: Crackles/rales Cardiovascular: Regular rate/rhythm, Edema Gastrointestinal: Soft and benign, Non-distended Musculoskeletal: No clubbing, No contractures Integumentary: No rashes, No cyanosis Neurological: Normal speech Urinary: Li catheter Blood work reviewed in the chart. BUN 51; Cr 4.61 Imagings Data: EXAM DESCRIPTION: US - Renal Ultrasound-Complete - 08/31/2017 12:14 pm CLINICAL HISTORY: . Chronic renal disease COMPARISON: Aug 20 2017 cat scan FINDINGS: The right kidney measures 9 cm with a normal echotexture. The left kidney measures 10 cm with a normal echotexture. Hydronephrosis is not seen. IMPRESSION: Unremarkable renal ultrasound. EXAM DESCRIPTION: CT - Abdomen Pelvis Wo Contrast - 06/11/2018 8:16 pm CLINICAL HISTORY: Abdominal pain. elevated liver enzymes COMPARISON: Abdomen W/Wo Contrast dated 08/20/2017; Mri Abdomen W/Wo Cont dated 09/14/2017 TECHNIQUE: CT imaging of the abdomen and pelvis was performed without contrast. Solid organ, bowel and vascular assessment is limited due to lack of IV and oral contrast. All CT scans are performed using dose optimization technique as appropriate and may include automated exposure control or mA/KV adjustment according to patient size. FINDINGS: Mild interstitial in pulmonary edema in the lung bases seen. The liver is shrunken and nodular in contour compatible with cirrhosis. Focally prominent low-density area measuring 3 cm in the far inferior right lobe of the liver is noted, likely a liver mass. This appears similar in size compared to a prior MR liver protocol dated 09/14/2017. The spleen is mildly enlarged in size. Mild ascites is present. Cholecystectomy clips seen. No bowel obstruction or free air. Both adrenal glands and kidneys are within normal limits. The appendix is normal. Multilevel degenerative changes are present throughout the lower lumbar levels, greatest at L4-5. IMPRESSION: Liver cirrhosis is noted with vague low-density 3 cm mass in the far inferior right lobe. Most likely, this mass would represent HCC in correlation with alpha fetoprotein level may be helpful. Mild ascites, new since comparative study. EXAM DESCRIPTION: RAD - Chest Single View - 06/11/2018 6:08 pm CLINICAL HISTORY: Cough;SOB Chest pain. COMPARISON: Chest Pa And Lat (2 Views) dated 09/01/2017; Chest Single View dated 08/31/2017; Chest Pa And Lat (2 Views) dated 08/28/2017; Chest Single View dated 08/19/2017; Humerus Right dated 01/23/2018 FINDINGS: Portable technique limits examination quality. Mild to moderate pulmonary edema suspected. The heart is mildly enlarged in size. Comminuted and displaced fracture the proximal right humerus noted. IMPRESSION: Mild to moderate CHF versus volume overload pattern. Conclusions/Impression: A/ SUMAN/ Oliguria likely ATN. HRS? CKD III. HTN with CKD/ CHF. Diastolic CHF, A/C. Hypocalcemia. HCV/ Liver Cirrhosis/ Thrombocytopenia. Anemia in chronic illness. Hypoalbuminemia. Hx Bradycardia in the setting of Coreg. P/ Continue current POC and Medications. Increase Furosemide 80mg IV q6h. Consider IV Albumin. Start Vitamin D. Give a dose of Epo. No NSAIDs. Low sodium diet. AM labs. Daily weight. Case discussed with Dr. Soto. Hospice is being considered due to overall poor prognosis. Thank you kindly for the consultation.
[2018-06-12] MEDS ORDERED: EPOETIN ALFA 10,000 UNIT/ML SQ ONE (21:19)
[2018-06-12] MEDS ORDERED: FUROSEMIDE 40 MG/4 ML VIAL IV SCH (22:00)
[2018-06-12 23:13] VITALS: O2SAT 94
[2018-06-12] MEDS ORDERED: EPOETIN ALFA 10,000 UNIT/ML VIAL ONE (23:21)
[2018-06-13 00:21] VITALS: TEMP 98.2
[2018-06-13 00:24] VITALS: BMI 36.9
[2018-06-13 01:40] VITALS: BP 115/80
--- NOTE | 2018-06-13 03:55 | P.PN ---
Date of Service: 06/13/18 I was called by the nurse to let me know that the patient . She was pronounced at 3:35 AM of today.
[2018-06-13] MEDS ORDERED: VITAMIN D 5,000 UNIT CAP PO SCH (09:00)
[2018-06-13] MEDS ORDERED: CALCITROL 0.25 MCG CAP PO SCH (09:00)
--- NOTE | 2018-06-13 18:34 | P.DS ---
Admission Date: 06/11/18 Discharge Date: 06/13/18 Primary Care Provider: Dr. Beckman; Nephrology-Dr. Warner Disposition: Discharge Condition: Reason for Admission: acute on chronic diastolic CHF Consultations: Nephrology-Dr. Warner Cardiology-Dr. Thrasher Procedures: Medical problem list: Shortness of breath, anasarca secondary to acute on chronic diastolic CHF complicated with liver cirrhosis/Hepatocellular carcinoma, acute on chronic renal disease stage 5 not on dialysis complicated with COPD Chronic anemia with thrombocytopenia likely related to chronic disease Elevated liver function likely related to liver cirrhosis and HCC Ascites related to her liver cirrhosis Brief History of Present Illness: 77-year-old female presented to the emergency room with increasing shortness of breath and anasarca. Patient with complicated history of liver cirrhosis with hepatic cellular carcinoma, chronic renal disease, congestive heart failure and chronic anemia with thrombocytopenia. Patient was evaluated emergency room. Patient was admitted for further evaluation and treatment. Hospital Course: Patient presented with shortness of breath anasarca secondary to acute on chronic diastolic CHF. This was complicated with liver cirrhosis and hepatocellular carcinoma along with acute on chronic renal disease stage 5 not on dialysis. Patient also has underlying COPD. Patient was started on IV diuretic therapy. Patient was seen and evaluated by nephrology and cardiology. Patient apparently had been treated with chemotherapy for her liver cancer in [place]. Since that time her condition has continued to decline. During the course of her stay her condition did not improve. Patient had very poor urinary output even with IV diuresis. Her condition looked grave. A malu discussion concerning her multiple medical issues and prognosis was addressed in detail with the patient along with family. Advanced directives were readdressed. Patient understands that she has a terminal condition in relation to her liver cirrhosis, renal failure, COPD and CHF. Patient understands that her condition would likely not improved. She also understands that the possibility of dialysis and possible intubation would likely cause more harm and complication due to her current status. Family has felt that they have tried with specialty care to improve her condition for the patient in [place] to no avail. After long discussion patient wishes to continue with comfort care only. Family and patient decided on hospice. Comfort measures were initiated. The plan was to continue hospice at home. The patient unfortunately in the hospital. August she rest in peace. Vital Signs/Physical Exam: Temp Pulse Resp BP Pulse Ox 98.2 F 102 H 12 115/80 96 06/13/18 00:00 06/13/18 00:00 06/13/18 00:00 06/13/18 01:40 06/13/18 00:00 Laboratory Data at Discharge: WBC 5.0 K/uL (4.3-10.9) 06/12/18 05:45 Hgb 8.1 g/dL (12.0-15.0) L 06/12/18 05:45 Hct 23.2 % (36.0-45.0) L 06/12/18 05:45 Plt Count 50 K/uL (152-406) L 06/12/18 05:45 PT 15.7 SECONDS (9.5-12.5) H 06/11/18 18:00 INR 1.35 06/11/18 18:00 Sodium 137 mmol/L (136-145) 06/12/18 05:45 Potassium 3.9 mmol/L (3.5-5.1) 06/12/18 05:45 BUN 51 mg/dL (7-18) H 06/12/18 05:45 Creatinine 4.98 mg/dL (0.55-1.3) H 06/12/18 05:45 Glucose 59 mg/dL (74-106) L 06/12/18 05:45 Uric Acid Cancelled 06/13/18 05:00 Phosphorus Cancelled 06/13/18 05:00 Magnesium 2.9 mg/dL (1.8-2.4) H 06/11/18 18:00 Total Bilirubin 4.0 mg/dL (0.2-1.0) H 06/12/18 05:45 AST 137 U/L (15-37) H 06/12/18 05:45 ALT 61 U/L (12-78) 06/12/18 05:45 Alkaline Phosphatase 213 U/L (45-117) H 06/12/18 05:45 Troponin I 0.20 ng/mL (0.0-0.045) H 06/12/18 05:45 Imagings Data: Patient . Patient seen on 06/12/2018 on multiple times. Home Medications: Albuterol Neb [Proventil 0.083% Neb Soln] 1 vial NEB TID 08/31/17 Budesonide/Formoterol Fumarate [Symbicort 160-4.5 Mcg Inhaler] 2 puff IH BIDP PRN 08/31/17 Rosuvastatin Calcium [Crestor] 1 tab PO BEDTIME 08/31/17 Pantoprazole [Protonix Tab*] 40 mg PO BID 06/12/18 Patient Discharge Instructions: Patient . May she rest in peace. Time spent managing pt's care (in minutes): 55
== END 2018-06-13 06:30 | disposition expired | DRG 291 ==
LOC: ER 17:19 → ERHOLD 21:55 → 2ND 22:31
PROVIDERS: ADMIT Internal Medicine; ATTEND Family Medicine
DX: I13.2 Hypertensive heart and chronic kidney disease with heart failure and with stage 5 chronic kidney disease, or end stage renal disease (principal); I50.33 Acute on chronic diastolic (congestive) heart failure; N17.0 Acute kidney failure with tubular necrosis; J96.20 Acute and chronic respiratory failure, unspecified whether with hypoxia or hypercapnia; N18.5 Chronic kidney disease, stage 5; C22.0 Liver cell carcinoma; R18.8 Other ascites; Z51.5 Encounter for palliative care; Z66 Do not resuscitate; E78.5 Hyperlipidemia, unspecified; K74.69 Other cirrhosis of liver; B18.2 Chronic viral hepatitis C; K76.0 Fatty (change of) liver, not elsewhere classified; J44.9 Chronic obstructive pulmonary disease, unspecified; K21.9 Gastro-esophageal reflux disease without esophagitis; D69.6 Thrombocytopenia, unspecified; E83.51 Hypocalcemia; E88.09 Other disorders of plasma-protein metabolism, not elsewhere classified; D63.8 Anemia in other chronic diseases classified elsewhere; R00.1 Bradycardia, unspecified; R73.03 Prediabetes
CPT/HCPCS: 36415; 51702; 71045; 74176; 80048; 80053; 80076; 81003; 81015; 82607; 82728; 83036; 83540; 83735; 83880; 84145; 84439; 84443; 84466; 84484; 85025; 85610; 86850; 86900; 86901; 87804; 93005; 93306; 94640; 94760; 96374; 99285; J0885; J1940; J2270; J7605; Q4081